=== PATIENT | male | born 1945 | race Caucasian/White ===

== ENCOUNTER 2018-11-06 10:47 | Emergency (ER) | payer MEDICARE, OTHER, SELFPAY ==
[2018-11-06] VITALS (18 sets, daily range): BP systolic 107–145; BP diastolic 62–79; PULSE 60–78; RESP 13–29; TEMP 36.8–37; O2SAT 95–99
[2018-11-06] MEDS: Meclizine 25 MG TAB PO (11:45)
[2018-11-06] MEDS: Normal Saline 1,000 ML 125 ML IV (11:55)
[2018-11-06 12:11] LABS: Abs Immature Grans 0.01 k/cumm (0.0-0.09); Absolute Basophil Count 0.01 k/cumm (0.0-0.2); Absolute Eosinophil Count 0.01 k/cumm (0.0-0.7); Absolute Lymphocyte Count 0.82 k/cumm (1.2-3.4); Absolute Monocyte Count 0.39 k/cumm (0.11-0.7); Absolute Neutrophil Count 4.88 k/cumm (1.2-6.7); Basophils % 0.2; Eosinophils % 0.2; HCT 43.8 % (40.0-50.0); HGB 14.9 g/dL (13.5-17.5); Immature Grans % 0.2; Lymphocytes % 13.4; Mean Corpuscular Hemoglobin 31.2 pg (27.0-33.0); Mean Corpuscular Volume 91.8 fL (80-95); Mean Platelet Volume 10.5 fL (8.0-11.0); Monocytes % 6.4; Neutrophils % 79.6; Platelet Count 206 x1000/uL (130-400); RBC 4.77 m/cumm (4.50-6.00); RBC Distribution Width 12.5 % (11.8-14.1); White Blood Cell Count 6.12 k/cumm (4.4-10.8)
[2018-11-06 12:18] LABS: Bilirubin Negative (Negative); Blood Trace-intact (Negative); Clarity Clear; Glucose Negative (Negative); Ketones Negative (Negative); Leukocyte Esterase Negative (Negative); Nitrite Negative (Negative); Urobilinogen 0.2 EU/dL (Up TO 0.2)
--- NOTE | 2018-11-06 12:21 | DI.CT_ITS ---
SYMPTOMS/DIAGNOSIS: DIZZINESS NONCONTRAST HEAD CT: Comparison is made with . No intracranial hemorrhage, mass or infarct is seen. There is no significant atrophy or visible white matter changes. There is mild mucosal thickening of the right maxillary sinus. The mastoid air cells appear clear. The orbits are unremarkable. IMPRESSION: Negative head CT. Incidental mild right maxillary sinus disease.
[2018-11-06 12:29] LABS: ALT 22 U/L (12-78); AST 26 U/L (15-37); Albumin 3.3 g/dL (3.4-5.0); Alkaline Phosphatase 51 U/L (46-116); Anion Gap 9.6 mmol/L (3-11); BUN 14 mg/dL (7-18); Bilirubin, Total 0.6 mg/dL (0.2-1.0); CO2 27.4 mmol/L (21.0-32.0); CREATININE 0.96 mg/dL (0.70-1.30); Calcium 8.6 mg/dL (8.5-10.1); Chloride 102 mmol/L (98-107); Glucose 160 mg/dL (70-100); Magnesium 1.6 mg/dL (1.8-2.4); Potassium 3.3 mmol/L (3.5-5.1); Sodium 139 mmol/L (136-145); Total Protein 6.9 g/dL (6.4-8.2); Troponin I < 0.02 ng/mL (0.00-0.06)
[2018-11-06 12:29] LABS: Bacteria Few HPF (Negative); C & S Indicated? No; Casts Negative LPF (Negative); Crystals Negative HPF (Negative); Epithelial Cells Negative HPF (Negative); Mucus Moderate (Negative); WBC 0-2 HPF (0-5)
[2018-11-06] MEDS: Magnesium Oxide 400 MG TAB PO (13:54)
--- NOTE | 2018-11-06 14:08 | ED.GENADUL_ITS ---
Discharge Plan Disposition Patient Disposition: HOME Discharge Details Chief Complaint: Dizzy/Sync Primary Care Provider: Suzanne Guerra ED Provider: Yash Miranda Home Meds and New Rx's Prescriptions: New meclizine 25 mg tablet 25 mg PO TID PRN (Reason: dizziness) Qty: 20 RF: 0 Continued pantoprazole 40 mg tablet,delayed release (DR/EC) 40 mg PO DAILY RF: 0 metoclopramide HCl [Reglan] 10 mg tablet 10 mg PO TID Qty: 60 RF: 2 metoprolol tartrate [Lopressor] 50 MG tablet 1 tab PO BID Qty: 180 RF: 4 lisinopril 5 MG tablet 1 tab PO DAILY Qty: 90 RF: 4 hydrochlorothiazide 25 MG tablet 1 tab PO QAM Qty: 90 RF: 4 lovastatin 20 MG tablet 20 mg PO DAILY Qty: 90 RF: 3 Discontinued dicyclomine 10 mg capsule 10 mg PO TID RF: 0 Discharge Data Discharge Date/Time-TO BE ENTERED AT DEPARTURE: 11/06/18 14:30 Medical Decision Making Chief complaint of dizziness, normal exam both cardiac respiratory and neurological with the exception of hints exam showing head impulse test with correction from the left and some worsening of symptoms with [place]-Hallpike also to the left. Plan to check labs, CT imaging of the head due to patient's age, EKG, give fluids and meclizine. Labs were reviewed and show mild low magnesium and potassium otherwise nondiagn ostic unremarkable. Patient was given oral magnesium and head CT was unremarkable. Patient reassessed and states significant improvement of symptoms with full ambulation through the emergency department without assistance and without significant gait abnormality. Given patient's description of paroxysmal symptoms, positive [place]-Hallpike and hence exam showing peripheral source along with no central findings and otherwise normal neurological exam I do not feel the patient requires any further workup. Close return precautions were discussed with patient and patient encouraged to follow-up with primary care provider for any further reassessment needs. Patient was prescribed meclizine to use at home since his significantly reduced his symptoms. After discussion of diagnosis and plan of care patient and family have no further needs, questions, or concerns and states clear understanding to return to the emergency department for any worsening symptoms. Lab Data Lab results reviewed: Yes I reviewed the patient's lab results. ECG Data Attestation: I personally reviewed and interpreted this ECG (s) as follows: Prior ECG tracings: available for review Interpretation: EKG reviewed with Dr. Lawrence and shows sinus rhythm with rate of 64, some nonspecific ST changes that are nondiagnostic with ST depression in V2 3 4 and 5 which have been present in the past. HPI General Mode of arrival: ambulatory . Date/Time Provider Initiated Documentation: 11/06/18 10:49 . Limitations to Documentation: no limitations . Information obtained by: patient and RN notes reviewed . History of Present Illness 73 year old M presents to the emergency department with the chief complaint of dizziness, Quality is described as other (denies pain), Patient started experiencing this day(s) (2) and it has been intermittent. Rest improves symptom(s), Movement worsens symptoms . Patient did receive the following treatments prior to arrival, none Related Data Home Medications Medication Instructions Recorded Confirmed hydrochlorothiazide 1 tab PO QAM #90 tab 10/30/17 11/06/18 lisinopril 1 tab PO DAILY #90 tab-cap 10/30/17 11/06/18 lovastatin 20 mg PO DAILY #90 tab-cap 10/30/17 11/06/18 metoprolol tartrate [Lopressor] 1 tab PO BID #180 tab-cap 10/30/17 11/06/18 metoclopramide 10 mg tablet 10 mg PO TID #60 tab 10/29/18 11/06/18 pantoprazole 40 mg tablet,delayed 40 mg PO DAILY 10/29/18 11/06/18 release meclizine 25 mg PO TID PRN #20 tab 11/06/18 Previous Rx's Medication Instructions Recorded hydrochlorothiazide 1 tab PO QAM #90 tab 10/30/17 lisinopril 1 tab PO DAILY #90 tab-cap 10/30/17 lovastatin 20 mg PO DAILY #90 tab-cap 10/30/17 metoprolol tartrate [Lopressor] 1 tab PO BID #180 tab-cap 10/30/17 metoclopramide 10 mg tablet 10 mg PO TID #60 tab 10/29/18 meclizine 25 mg PO TID PRN #20 tab 11/06/18 Allergies Allergy/AdvReac Type Severity Reaction Status Date / Time oxycodone AdvReac Intermediate Dizziness/L Unverified 11/06/18 11:06 ightheade General Stated Complaint: Dizzy/Sync TORIE: 2 Review of Systems Constitutional Denies body ache(s), Denies chills, Denies fever(s) and Denies headache(s) Eyes Denies change in vision ENT Reports vertigo, Reports dizziness and Denies headache(s) Cardiovascular Denies chest pain, Denies syncope, Denies irregular heart rhythm and Denies dyspnea Respiratory Denies dyspnea Gastrointestinal Reports nausea and Reports vomiting Neurologic Reports as per HPI, Reports vertigo, Reports dizziness, Denies syncope, Denies headache(s) and Denies sensory deficit PFSH Surgical History Colonoscopy - MAC (~2007) LEFT HEART CARDIAC CATH (~2004) Repair of inguinal hernia Family History Father Heart disease Stroke Alcohol abuse Maternal Grandfather Heart disease Mother No problems noted. Paternal Grandfather No problems noted. Maternal Grandmother No problems noted. Paternal Grandmother No problems noted. Social History caregiver/support person: No household members: spouse housing: house pets and animals: Yes pets and animals: cat(s) sexually active: Yes do you think of yourself as: straight/heterosexual current gender identity: male what type of physical activity do you participate in: walking frequency: 3-4 times per week duration: 15-30 minutes/day Smoking and Tabacco status: Never second hand exposure: Yes alcohol intake: current alcohol intake frequency: holidays/special occasions only Alcohol type: beer substance use type: does not use susana/adventist: Confucianist special susana needs: No What is your relationship status?: How often do you talk on the phone with friends or family?: twice per week How often do you get together with friends or relatives?: once per week How often do you attend presybeterian or adventist services?: decline to answer Do you belong to any clubs or organized social groups?: no Panel score (0-1 are the most socially isolated patients): 2 Exam Const General: cooperative, healthy appearing, no acute distress and well groomed Orientation: alert, awake and oriented x3 HENMT Head: normal to inspection Ears: hearing grossly normal bilaterally and TM's normal bilaterally Mouth: oral mucosae normal and moist mucous membranes Throat: posterior oropharynx normal Eyes Visual Barragan: normal visual barragan by confrontation Alignment and Position: alignment normal Periorbital: periorbital findings normal Eyelids: eyelids normal Sclera: sclerae normal Cornea: corneas normal Pupils: PERRL EOM: EOM intact bilaterally Neck Neck: normal visual inspection, full ROM, no lymphadenopathy and no meningeal signs Resp Effort & Inspection: normal respiratory effort and able to speak in complete sentences Auscultation: clear to auscultation bilaterally Cardio Rate: regular rate Rhythm: regular rhythm Heart Sounds: S1 normal and S2 normal Neuro General: alert, awake, oriented x3, gait normal, tone normal, moves all extremities, CN's II-XI intact bilaterally, not confused and Heladio Hallpike (positive to left) Cognition: normal cognition Speech: speech normal Motor: muscle tone normal throughout, strength 5/5 throughout, no pronator drift, no movement abnormalities noted and no fasciculations Sensory Exam: no sensory deficits noted Coordination: [id number] test normal, Romberg test normal, Does not sway with eyes open, rapid alternating movement UE normal and rapid alternating movement LE normal Course Vital Signs Respiratory Rate 19 11/06/18 10:50 Pulse Oximetry 97 11/06/18 10:50 Temperature 36.8 C 11/06/18 13:54 Temperature Source Temporal Artery Scan 11/06/18 13:54 Pulse 66 11/06/18 13:54 Pulse 60 11/06/18 12:03 Respiratory Rate 16 11/06/18 13:54 Respiratory Effort Non-Labored 11/06/18 11:09 Respiratory Depth Normal 11/06/18 11:09 Respiratory Pattern Normal 11/06/18 11:09 Blood Pressure 129/69 11/06/18 13:54 Blood Pressure Mean 84 11/06/18 12:02 Blood Pressure Position Supine 11/06/18 11:01 Pulse Oximetry 98 11/06/18 13:54 Oxygen Delivery Method Room Air 11/06/18 13:54 Oxygen Flow Rate 0 11/06/18 13:54 Pain Level 1 11/06/18 11:01 Lab/Test Results Lab/Test Results: Laboratory Tests Range/Units 03/05/19 03/05/19 03/05/19 11:50 11:50 12:05 WBC (4.4-10.8) k/cumm 6.12 RBC (4.50-6.00) m/cumm 4.77 Hgb (13.5-17.5) g/dL 14.9 Hct (40.0-50.0) % 43.8 MCV (80-95) fL 91.8 MCH (27.0-33.0) pg 31.2 MCHC (32.0-36.0) g/dL 34.0 RDW (11.8-14.1) % 12.5 Plt Count (130-400) x1000/uL 206 MPV (8.0-11.0) fL 10.5 Immature Gran % 0.2 Neutrophils % 79.6 Lymphocytes % 13.4 Monocytes % 6.4 Eosinophils % 0.2 Basophils % 0.2 Absolute Neutrophils (1.2-6.7) k/cumm 4.88 Absolute Lymphocytes (1.2-3.4) k/cumm 0.82 L Absolute Monocytes (0.11-0.7) k/cumm 0.39 Absolute Eosinophils (0.0-0.7) k/cumm 0.01 Absolute Basophils (0.0-0.2) k/cumm 0.01 Sodium (136-145) mmol/L 139 Potassium (3.5-5.1) mmol/L 3.3 L Chloride (98-107) mmol/L 102 Carbon Dioxide (21.0-32.0) mmol/L 27.4 Anion Gap (3-11) mmol/L 9.6 BUN (7-18) mg/dL 14 Creatinine (0.70-1.30) mg/dL 0.96 Estimated GFR/1.73 m2 (mL/min/1.73m2) >= 60.00 Glucose (70-100) mg/dL 160 H Calcium (8.5-10.1) mg/dL 8.6 Magnesium (1.8-2.4) mg/dL 1.6 L Total Bilirubin (0.2-1.0) mg/dL 0.6 AST (15-37) U/L 26 ALT (12-78) U/L 22 Alkaline Phosphatase (46-116) U/L 51 Troponin I (0.00-0.06) ng/mL < 0.02 Total Protein (6.4-8.2) g/dL 6.9 Albumin (3.4-5.0) g/dL 3.3 L Urine Color (Yellow) Yellow Urine Clarity Clear Urine pH (5-8) 7.0 Ur Specific [place] (1.005-1.025) 1.020 Urine Protein (Negative) mg/dL Negative Urine Ketones (Negative) mg/dL Negative Urine Blood (Negative) Trace-intact H Urine Nitrite (Negative) Negative Urine Bilirubin (Negative) Negative Urine Urobilinogen (Up TO 0.2) EU/dL 0.2 Ur Leukocyte Esterase (Negative) Negative Urine RBC (0-2) 3-5 H Urine WBC (0-5) HPF 0-2 Ur Epithelial Cells (Negative) HPF Negative Urine Crystals (Negative) HPF Negative Urine Bacteria (Negative) HPF Few Urine Casts (Negative) LPF Negative Urine Mucus (Negative) Moderate Ur Culture Indicated? No Urine Glucose (Negative) mg/dL Negative
--- NOTE | 2018-11-06 14:18 | NUR.NOTE ---
Nursing Note: able to ambulate aroung er with mild dizziness--gait improved
== END 2018-11-06 14:30 | disposition home or self-care (01) ==
PROVIDERS: Emergency Provider Nurse Practitioner Family; PCP Internal Medicine
DX: H81.10 Benign paroxysmal vertigo, unspecified ear (principal)
CPT/HCPCS: 36415; 36416; 80053; 82962; 93005; 96360; 96361; 99285; 70450; 81003; 81015; 83735; 84484; 85025; 93010

== ENCOUNTER 2019-03-05 09:40 | Outpatient (CLI) | payer MEDICARE, SELFPAY ==
[2019-03-05 13:39] LABS: ALT 27 U/L (12-78); AST 29 U/L (15-37); Albumin 3.6 g/dL (3.4-5.0); Alkaline Phosphatase 63 U/L (46-116); Anion Gap 9.5 mmol/L (3-11); BUN 13 mg/dL (7-18); Bilirubin, Total 0.6 mg/dL (0.2-1.0); CO2 27.5 mmol/L (21.0-32.0); CREATININE 0.99 mg/dL (0.70-1.30); Chloride 103 mmol/L (98-107); Glucose 79 mg/dL (70-100); Magnesium 1.8 mg/dL (1.8-2.4); Potassium 4.5 mmol/L (3.5-5.1); Sodium 140 mmol/L (136-145); Total Protein 6.8 g/dL (6.4-8.2)
== END 2019-03-05 10:00 ==
PROVIDERS: PCP Internal Medicine; Visit Provider Internal Medicine
DX: E83.42 Hypomagnesemia (principal); I10 Essential (primary) hypertension
CPT/HCPCS: 36415; 80053; 83735

== ENCOUNTER 2019-09-11 02:13 | Outpatient (CLI) | payer MEDICARE, SELFPAY ==
--- NOTE | 2019-09-11 08:54 | DI.RAD_ITS ---
EXAM: XR CHEST 2V PA LATERAL INDICATION: chest discomfort DYSPHAGIA R13.10. COMPARISON: No exams were available for comparison TECHNIQUE: 2D digital imaging was performed. FINDINGS: Heart size is within normal limits. The aorta is mildly tortuous. There are mild basilar fibrotic changes. No infiltrate, effusion or pulmonary edema is seen. IMPRESSION: No acute abnormality.
== END 2019-09-11 02:33 ==
PROVIDERS: PCP Internal Medicine; Visit Provider Internal Medicine
DX: R07.89 Other chest pain (principal); R13.10 Dysphagia, unspecified
CPT/HCPCS: 71046

== ENCOUNTER 2020-02-18 13:01 | Outpatient (REF) | payer MEDICARE, SELFPAY ==
[2020-02-18 20:27] LABS: CREATININE 0.95 mg/dL (0.70-1.30); Calculated LDL 109 mg/dL (<100); Cholesterol 209 mg/dL (<200); HDL Cholesterol 52 mg/dL (40-60); Potassium 3.6 mmol/L (3.5-5.1); Triglyceride 244 mg/dL (<150)
== END 2020-02-18 13:21 ==
LOC: LBN 13:01
PROVIDERS: PCP Nurse Practitioner; Visit Provider Nurse Practitioner
DX: I10 Essential (primary) hypertension (principal); E78.5 Hyperlipidemia, unspecified
CPT/HCPCS: 80061; 82565; 84132

== ENCOUNTER 2021-09-14 18:18 | Outpatient (REF) | payer MEDICARE, SELFPAY ==
[2021-09-15 11:42] LABS: COVID-19 RT-PCR UVMMC Result Negative (Negative)
== END 2021-09-14 18:19 | disposition home or self-care (01) ==
LOC: LBN 18:18
PROVIDERS: PCP Nurse Practitioner; Visit Provider Nurse Practitioner
DX: Z20.822 Contact with and (suspected) exposure to COVID-19 (principal)
CPT/HCPCS: U0003; U0005

== ENCOUNTER 2021-09-24 01:58 | Outpatient (CLI) | payer MEDICARE, SELFPAY ==
[2021-09-24 10:06] LABS: HCT 50.8 % (40.0-50.0); HGB 16.5 g/dL (13.5-17.5); MCH 29.9 pg (27.0-33.0); MCHC 32.5 % (32.0-36.0); MCV 92.2 fL (80-95); MPV 10.5 fL (8.0-11.0); Platelet Count 190 10^3/uL (130-400); RBC 5.51 10^6/uL (4.36-5.78); RDW 13.2 % (11.8-14.1); WBC 7.13 10^3/uL (4.4-10.8)
[2021-09-24 10:15] LABS: Hemoglobin A1C 5.8 % (<5.7)
[2021-09-24 11:11] LABS: Anion Gap 7.6 mmol/L (3-11); BUN 19 mg/dL (7-18); CO2 31.4 mmol/L (21.0-32.0); CREATININE 1.1 mg/dL (0.70-1.30); Calculated LDL 85 mg/dL (<100); Chloride 101 mmol/L (98-107); Cholesterol 160 mg/dL (<200); Glucose 91 mg/dL (74-106); HDL Cholesterol 56 mg/dL (40-60); Potassium 3.9 mmol/L (3.5-5.1); Sodium 140 mmol/L (136-145); Triglyceride 97 mg/dL (<150)
[2021-09-27 00:09] LABS: Anaplasma phagocytophilum Negative (Negative); B. miyamotoi PCR Negative (Negative); Babesia divergens/MO-1 Negative (Negative); Babesia duncani Negative (Negative); Babesia microti Negative (Negative); Ehrlichia chaffeensis Negative (Negative); Ehrlichia ewingii/canis Negative (Negative); Ehrlichia muris eauclairensis Negative (Negative)
[2021-09-27 11:04] LABS: Lyme Ab w Rflx to Lyme Confirm Negative (Negative)
== END 2021-09-24 01:59 | disposition home or self-care (01) ==
LOC: LBO 01:58
PROVIDERS: PCP Nurse Practitioner; Visit Provider Nurse Practitioner
DX: I10 Essential (primary) hypertension (principal); R73.09 Other abnormal glucose; E78.2 Mixed hyperlipidemia; R53.83 Other fatigue; M62.81 Muscle weakness (generalized)
CPT/HCPCS: 36415; 80048; 80061; 85027; 87798; 83036; 86618

== ENCOUNTER 2021-10-11 04:26 | Outpatient (RCR) | payer MEDICARE, SELFPAY ==
--- NOTE | 2021-10-11 09:15 | HOLTER_ITS ---
APPROVED REPORT Conclusion This is a 48-hour Holter monitor, ordered for an irregular heartbeat Rhythm throughout was atrial fibrillation with an average rate of 64. Minimum was 49, maximum 116 There were rare ventricular ectopic beats There is no high-grade AV block, no pauses greater than 3 seconds The patient reported that he was lightheaded throughout the recording
== END 2021-11-01 23:59 | disposition home or self-care (01) ==
LOC: RT 04:26
PROVIDERS: PCP Nurse Practitioner; Visit Provider Nurse Practitioner
DX: I49.8 Other specified cardiac arrhythmias (principal); I48.91 Unspecified atrial fibrillation; R42 Dizziness and giddiness
CPT/HCPCS: 93227; 93225; 93226

== ENCOUNTER 2021-10-13 01:50 | Outpatient (CLI) | payer MEDICARE, SELFPAY ==
[2021-10-13 10:06] LABS: ALT 29 U/L (16-63); AST 29 U/L (15-37); Albumin 3.8 g/dL (3.4-5.0); Alkaline Phosphatase 63 U/L (46-116); Bilirubin, Direct 0.3 mg/dL (0.0-0.2); TSH (W/Ref FT4) 4.55 uIU/mL (0.36-3.74); Total Protein 7.2 g/dL (6.4-8.2)
[2021-10-13 10:22] LABS: FREE T4 1.15 ng/dL (0.76-1.46)
[2021-10-13 11:00] LABS: Folate 19.3 ng/mL (8.6-20.0); Vitamin B12 516 pg/mL (193-986)
== END 2021-10-13 01:51 | disposition home or self-care (01) ==
LOC: LBO 01:50
PROVIDERS: PCP Nurse Practitioner; Visit Provider Nurse Practitioner
DX: M62.81 Muscle weakness (generalized) (principal); R53.83 Other fatigue; E78.2 Mixed hyperlipidemia
CPT/HCPCS: 36415; 80076; 82607; 82746; 84439; 84443

== ENCOUNTER 2021-11-09 01:47 | Outpatient (CLI) | payer MEDICARE, SELFPAY ==
--- NOTE | 2021-11-09 08:00 | DI.RAD_ITS ---
Exam(s) XR HIP LT COMPLETE AP PELVIS EXAM: XR HIP LT COMPLETE AP PELVIS CLINICAL HISTORY: hilt hip pain, m25.552. TECHNIQUE: 2D digital imaging was performed. COMPARISON: No exams were available for comparison FINDINGS: No evidence of pelvic nor hip fracture. Mild symmetrical degenerative changes are noted in the hips. Sacroiliac joints unremarkable. No osseous lesions. IMPRESSION: DATA REPOSITORY: RADIATION DOSE DELIVERED:
== END 2021-11-09 02:07 ==
PROVIDERS: PCP Nurse Practitioner; Visit Provider Nurse Practitioner
DX: M25.552 Pain in left hip (principal); M16.12 Unilateral primary osteoarthritis, left hip
CPT/HCPCS: 73502

== ENCOUNTER → 2021-11-18 01:56 | Outpatient (CLI) | payer MEDICARE, SELFPAY ==
--- NOTE | 2021-11-18 13:56 | DI.US_ITS ---
APPROVED REPORT EXAM: Comprehensive 2D, Doppler, and color-flow Echocardiogram Patient Location: Out-Patient Stacker Driver: Naa Phillips RDCS (AE) Indications: A Fib Other Information Study Quality: Adequate Conclusion Normal left ventricular wall thickness and chamber size. Estimated ejection fraction is 55 to 60%. Diastolic septal flattening suggests right ventricular pressure and volume overload. There are no se gmental wall motion abnormalities The right ventricle is moderately to severely dilated. Right ventricular systolic function appears g rossly normal The left atrium is normal in size. The right atrium is severely dilated The aortic valve is trileaflet and mildly sclerotic with trace to mild regurgitation Normal mitral valve with mild regurgitation Normal tricuspid valve with moderate regurgitation. Estimated right ventricular systolic pressure is 38 mmHg Mildly dilated ascending aorta measuring 3.81 cm Wall motion Left Ventricle The left ventricle is normal size. The left ventricular systolic function is normal. The left ventric ular ejection fraction is within the normal range. There is normal left ventricular wall thickness. F lattened septum consistent with right ventricular volume and pressure overload. There is no ventricul ar septal defect visualized. LVEF is 57%. Right Ventricle Right ventricle is moderate to severely dilated. Right ventricular systolic function is grossly efrain l. The RVSP is 37.7 mmHg. Atria The left atrium size is normal. Right atrium is severely dilated. The interatrial septum is intact wi th no evidence for an atrial septal defect. Aortic Valve The Aortic valve is mildly sclerotic. Aortic valve is trileaflet. There is no aortic valvular stenosi s. Trace to mild aortic regurgitation. Mitral Valve The mitral valve is normal in structure. No evidence of mitral valve stenosis. Mild mitral regurgitat ion. Tricuspid Valve The tricuspid valve is normal in structure. There is no tricuspid valve stenosis. Moderate tricuspid regurgitation. Pulmonic Valve The pulmonary valve is normal in structure. There is no pulmonic valvular stenosis. Mild pulmonic reg urgitation. Great Vessels The aortic root is normal in size. The ascending aorta is mildly dilated.3.81 cm Aortic arch is efrain l in caliber. IVC is normal in size and collapses >50% with inspiration. Pericardium There is no pericardial effusion. 2D Dimensions IVSD d PLAX 1.02 cm M: 0.6-1.2 LV Vol A2C d MOD 105.3 mL LVPW d PLAX 1.02 cm M: 0.6 - 1.2 LV Vol A4C d MOD 84.3 mL LVID d PLAX 5.18 cm M: 4.2 - 5.8 LA vol/ BSA A4C s A-L 21.5 mL/m2 LVDs 3.65 cm M: 2.5 - 4.0 LA Area A4C s MOD 17.95 cm2 Ao Root d 3.45 cm M: 3.1 - 3.7 LV EF A4C MOD 57.8 % Ao Asc Diam d 3.81 cm M: 2.6 - 3.4 LV EF A2C MOD 56.1 % LV EF Teichholz 55.9 % LV EF Biplane MOD 55.8 % LVEF (Erwin's) 55.82 % M: 52 - 72 SV 54.45 mL LV Volume 70.70 mL M: 62 - 150 SV Index 24.49 mL/m2 LV Volume Index 31.84 mL/m2 M: 34 - 74 LV Vol Biplane MOD 97.5 mL FS 29.35 % M-Mode TAPSE 2.51 cm (M/F) >1.7 LV Diastology E/A Ratio 3.2 MV E Vmax 0.81 (0.4-1.3 m/s) MV A Vmax 0.25 (0.4-1.3 m/s) MV E/A Ratio 3.09 Aortic Valve LVOT Area 3.84 cm2 AoV Area Vmax 2.59 cm2 LVOT Vmax 0.85 m/s AoV Area/ BSA (Vmax) 1.17 cm2/m2 LVOT Mean Travon. 0.52 m/s BEKA Mean Travon. 2.23 cm2 LVOT Peak Grad 2.9 mmHg BEKA Mean Travon. Index 1.00 cm2/m2 LVOT Mean Grad 1.3 mmHg AR DT 2809 msec LVOT VTI 0.187 m AR PHT 815 msec LVOT Diam s 2.20 cm AoV Vmax 1.26 m/s Velocity Ratio 0.67 AoV Mean Travon. 0.90 m/s AoV Peak Grad 6.4 mmHg LVOT SV 71.90 mL AoV Mean Grad 3.6 mmHg AoV VTI 0.246 m AoV Area VTI 2.92 cm2 AoV Area/ BSA (VTI) 1.31 cm/m2 Mitral Valve MV DT 162 (160-240 msec) MV PHT 47 msec MV Area PHT 4.69 cm2 Pulmonary Valve PV Vmax 0.88 (0.5-1.5 m/s) RVOT Peak Gr. 1.13 mmHg PV Peak Grad 3.1 mmHg RVOT Mean Gr. 0.50 mmHg PV Mean Grad 1.3 mmHg RVOT VTI 0.110 m PV VTI 0.139 m RVOT Vmax 0.53 m/s Tricuspid Valve TR Peak Grad 34.7 mmHg TR Vmax 2.95 m/s RA Pressure 3.00 mmHg RVSP (TR) 37.7 mmHg
== END ==
PROVIDERS: PCP Nurse Practitioner; Visit Provider Nurse Practitioner
DX: I48.91 Unspecified atrial fibrillation (principal); Z09 Encounter for follow-up examination after completed treatment for conditions other than malignant neoplasm; I77.819 Aortic ectasia, unspecified site
CPT/HCPCS: 93306; 99243

== ENCOUNTER 2021-12-16 13:47 | Outpatient (CLI) | payer MEDICARE, SELFPAY ==
--- NOTE | 2021-12-16 14:00 | RT.EKG_ITS ---
APPROVED REPORT Exam: Resting ECG Reason for Exam: afib Patient Location: O HR:77 bpm ECG Measurements Heart Rate 77 AXIS CA [id number] P [id number] QRSd 98 QRS -22 QT 398 T -15 QTc 451 Conclusion Atrial fibrillation...V-rate 51- 72, irreg A-activity Abnormal R-wave progression, late transition...QRS area<0 in V5/V6 Left axis Baseline wander in lead(s) V2,V4
== END 2021-12-16 13:48 | disposition home or self-care (01) ==
LOC: DI.CARD 14:07
PROVIDERS: PCP Nurse Practitioner; Referring Provider Nurse Practitioner; Visit Provider Internal Medicine Cardiovascular Disease
DX: I48.91 Unspecified atrial fibrillation (principal)
CPT/HCPCS: 93010

== ENCOUNTER → 2021-12-16 13:47 | Outpatient (BNVA) | payer MEDICARE, SELFPAY | PROVIDERS: PCP Nurse Practitioner; Referring Provider Nurse Practitioner; Visit Provider Internal Medicine Cardiovascular Disease | DX: I48.91 Unspecified atrial fibrillation (principal); I10 Essential (primary) hypertension | CPT/HCPCS: 93005; 99203; 99214 ==

== ENCOUNTER 2022-01-19 02:16 | Outpatient (CLI) | payer MEDICARE, SELFPAY | END 2022-01-19 02:17 | disposition home or self-care (01) | LOC: LBO 02:16 | PROVIDERS: PCP Nurse Practitioner; Visit Provider Internal Medicine Cardiovascular Disease ==

== ENCOUNTER 2022-01-19 10:39 | Outpatient (REF) | payer MEDICARE, SELFPAY ==
[2022-01-19 11:08] LABS: Source Nasal/Nares
[2022-01-19 16:03] LABS: COVID-19 PCR Negative (Negative)
== END 2022-01-19 10:40 | disposition home or self-care (01) ==
LOC: LBN 10:39
PROVIDERS: PCP Nurse Practitioner; Visit Provider Internal Medicine Cardiovascular Disease
DX: Z20.822 Contact with and (suspected) exposure to COVID-19 (principal); Z01.818 Encounter for other preprocedural examination
CPT/HCPCS: 87635; U0005

== ENCOUNTER 2022-01-21 11:12 | Day surgery (SDC) | payer MEDICARE, SELFPAY ==
--- NOTE | 2022-01-21 11:15 | RT.EKG_ITS ---
APPROVED REPORT Exam: Resting ECG Reason for Exam: pre- op ekg Patient Location: O HR:84 bpm ECG Measurements Heart Rate 84 AXIS MO [id number] P [id number] QRSd 97 QRS -38 QT 371 T -11 QTc 440 Conclusion Atrial fibrillation...V-rate 66- 94, irreg A-activity Ventricular premature complex...V complex w/ short R-R interval Left axis deviation...QRS axis (-30,-90) Borderline T abnormalities, diffuse leads...T flat/neg
[2022-01-21 11:21] VITALS: BP 141/100; PULSE 88; RESP 22; TEMP 37; O2SAT 99
--- NOTE | 2022-01-21 11:46 | W.ANESPRE ---
General Info Date of Service Date Performed: 01/21/22 Height: 6 ft 1 in Weight: 96.4 kg Body Mass Index (BMI): 28.0 Surgical Procedure: Operation Date: 01/21/22 12:00 Proposed Procedure Side Surgeon p Cardioversion Vidya Saleh MD Meds Allergies and Home Medications Allergies Allergy/AdvReac Type Severity Reaction Status Date / Time oxycodone AdvReac Intermediate Dizziness/L Verified 01/21/22 11:35 ightheade Home Medication Medication Instructions Recorded hydrochlorothiazide 25 mg tablet 25 mg PO QAM #90 tabs 01/28/21 pantoprazole 40 mg tablet,delayed 40 mg PO DAILY #90 tabs 01/28/21 release adjuvant AS01B (PF)vial 1 of 2 0.5 ml IM ONCE #0.5 mL 10/01/21 (Shingrix Adjuvant Component (PF) intramuscular suspension) apixaban 5 mg tablet (Eliquis) 5 mg PO BID #60 tabs 10/15/21 lisinopril 20 mg tablet 20 mg PO DAILY #90 tabs 11/05/21 bisacodyl 5 mg tablet,delayed 5 mg PO ONCE colonscopy bowel prep 11/18/21 release (Dulcolax (bisacodyl)) #4 tabs multivitamin 1 tab PO DAILY 11/18/21 polyethylene glycol 3350 17 238 g PO ONCE colonoscopy prep 11/18/21 gram/dose oral powder #238 grams metoprolol tartrate 50 mg tablet 50 mg PO BID #180 tab-caps 11/25/21 (Lopressor) levothyroxine 25 mcg tablet 25 mcg PO DAILY #90 tabs 12/17/21 lovastatin 20 mg tablet 20 mg PO HS 01/19/22 Current Visit Medications: Current Medications Generic Name Dose Route Start Last Admin Trade Name Freq PRN Reason Stop Dose Admin Sodium Chloride 1,000 mls @ 30 mls/hr 01/20/22 06:00 Saline 1000ml Bag IV INFUSION ELÍAS IV Miscellaneous Supplies 1 each 01/21/22 06:00 Iv Access IV 02/19/22 23:59 DIRECTED ELÍAS Sodium Chloride 0 ml 01/21/22 06:00 Normal Saline Flush 10 Ml Syr IV 02/19/22 23:59 PRN PRN Sodium Chloride 0 ml 01/21/22 06:00 Normal Saline 10 Ml Vial IJ 02/19/22 23:59 DIRECTED PRN Sterile Water 0 ml 01/21/22 06:00 Water,Injection,Sterile 10 Ml Vial IJ 02/19/22 23:59 DIRECTED PRN PFSH Active Problems Active Problems: Problem Status Onset Code Left hip pain M25.552 Positive colorectal cancer screening using Cologuard test R19.5 A-fib I48.91 Elevated TSH R79.89 Prediabetes R73.03 Muscle weakness (generalized) M62.81 Fatigue R53.83 Tremor R25.1 Essential hypertension 07/02/13 I10 Gastroesophageal reflux disease K21.9 Hyperlipidemia 01/03/13 E78.5 Medical History Medical History Achalasia History of left heart catheterization because of esophageal spasm symptoms, normal Low back pain Surgical History Surgical History Colonoscopy - MAC (~2007) LEFT HEART CARDIAC CATH (~2004) Repair of inguinal hernia B/L 1998 RIGHT 2011 S/P cholecystectomy Tobacco Smoking/Tobacco Use Status: Never Passive smoking exposure: Yes Second hand exposure: Yes (His father smoked terribly and at age 63) Alcohol Alcohol Intake: former Substance Use Substance use: Never Substance use type: does not use Vital Signs and Lab Results Vital Signs Most Recent Vital Signs in EMR: Most Recent Vital Signs Temp Pulse Resp BP Pulse Ox 37.0 C 88 22 141/100 H 99 01/21/22 11:21 01/21/22 11:21 01/21/22 11:21 01/21/22 11:21 01/21/22 11:21 Lab Results Blood Type / Crossmatch: No Data to Display Complete Blood Count: No Data to Display Complete Metabolic Panel: No Data to Display Liver Function Panel: No Data to Display Coagulation Panel: No Data to Display Cardiac Panel: No Data to Display Arterial Blood Gas: No Data to Display Venous Blood Gas: No Data to Display Pancreas Panel: No Data to Display Thyroid Panel: No Data to Display Infectious Disease: Coronavirus (COVID-19)(PCR) Negative (Negative) 01/19/22 09:00 Coronavirus 2019 Source Nasal/Nares 01/19/22 09:00 Blood Cultures: No Data to Display Toxicology Panel: No Data to Display Imaging and Studies Imaging and Studies Study information below may be from another EMR and interpreted by another provider. Please see original notes in EMR for more complete details. EKG Summary: Conclusion Atrial fibrillation...V-rate 66- 94, irreg A-activity Ventricular premature complex...V complex w/ short R-R interval Left axis deviation...QRS axis (-30,-90) Borderline T abnormalities, diffuse leads...T flat/neg Echocardiogram Summary: Conclusion Normal left ventricular wall thickness and chamber size. Estimated ejection fraction is 55 to 60%. Diastolic septal flattening suggests right ventricular pressure and volume overload. There are no segmental wall motion abnormalities The right ventricle is moderately to severely dilated. Right ventricular systolic function appears grossly normal The left atrium is normal in size. The right atrium is severely dilated The aortic valve is trileaflet and mildly sclerotic with trace to mild regurgitation Normal mitral valve with mild regurgitation Normal tricuspid valve with moderate regurgitation. Estimated right ventricular systolic pressure is 38 mmHg Mildly dilated ascending aorta measuring 3.81 cm Anesthesia Assessment and Plan Anesthesia History Personal History: No History of Anesthesia Complications Family History: No Family History of Anesthesia Complications Exercise Tolerance Exercise Tolerance: Metabolic Equivalents>4 Cardiac & Pulmonary Exam Cardiac Exam: Normal S1/S2 Heart Sounds Pulmonary Exam: Clear Bilateral Breath Sounds Implantable Cardiac Device Does patient have a Pacemaker or an ICD?: No Airway Exam Known Difficult Airway: No Mallampati Class: 3 Mouth Opening: Narrow (< 3cm) Thyromental Distance: Greater than 3 cm Facial Hair: Full Cisse (Mustache) Neck Range of Motion: Full ROM Neck Circumference: Normal Teeth Condition: Normal Dentition ASA Classification ASA Score: ASA 3 Emergency Case?: No NPO Status NPO Status: NPO Clears >2 hours, Solids >8 hours Anesthesia Plan Resuscitation Status: Full Code Anesthesia Technique: General Anesthesia Airway Planned: Natural Airway Monitors Used: Standard Monitors
[2022-01-21 11:50] VITALS: BMI 28.0
[2022-01-21] MEDS: Normal Saline 1,000 ML 30 ML IV (11:57)
--- NOTE | 2022-01-21 12:00 | RT.EKG_ITS ---
APPROVED REPORT Exam: Resting ECG Reason for Exam: post-op ekg Patient Location: O HR:63 bpm ECG Measurements Heart Rate 63 AXIS MS 232 P -9 QRSd 98 QRS -29 QT 462 T -13 QTc 514 Conclusion Sinus rhythm...normal P axis, V-rate 60- 99 Multiform ventricular premature complexes...short R-R, variable morphology Prolonged MS interval...MS >220, V-rate 50- 90 Left axis Poor R wave progression, consider old anterior infarct Prolonged QT interval...QTc >500mS
[2022-01-21 12:18] VITALS: BP 115/76; PULSE 55; RESP 20; TEMP 36.8; O2SAT 98
--- NOTE | 2022-01-21 12:22 | W.PM.DSUDISC ---
Discharge Plan Disposition Patient Disposition: HOME Condition: Stable Discharge Details Reason For Visit: atrial fibrillation Attending Provider: Vidya Saleh Primary Care Provider: Bernice Garcia Home Meds and New Rx's Prescriptions: Continued Shingrix Adjuvant Component-PF Suspension 0.5 ml IM ONCE Qty: 0.5 1RF Rx Instructions: as a single dose Eliquis 5 mg tablet 5 mg PO BID Qty: 60 11RF lisinopril 20 mg tablet 20 mg PO DAILY Qty: 90 3RF multivitamin Tablet 1 tab PO DAILY polyethylene glycol 3350 17 gram/dose powder 238 g PO ONCE Qty: 238 0RF Rx Instructions: take per colonoscopy instructions bisacodyl [Dulcolax (bisacodyl)] 5 mg tablet,delayed release (DR/EC) 5 mg PO ONCE Qty: 4 0RF Rx Instructions: take per colonoscopy instructions hydrochlorothiazide 25 mg tablet 25 mg PO QAM Qty: 90 4RF pantoprazole 40 mg tablet,delayed release (DR/EC) 40 mg PO DAILY Qty: 90 4RF metoprolol tartrate [Lopressor] 50 mg tablet 50 mg PO BID Qty: 180 4RF levothyroxine 25 mcg tablet 25 mcg PO DAILY Qty: 90 4RF lovastatin 20 mg tablet 20 mg PO HS Discharge Instructions Stand Alone Forms: DSU Cardioversion Post-Op Discharge Orders Discharge Orders: Discharge Order (Routine); Ordered 01/21/22 Ordered By: Vidya Saleh Other Ambulatory Orders: EKG (Routine) Location: None Selected Ordered By: Vidya Saleh Discharge Data Discharge Date/Time-TO BE ENTERED AT DEPARTURE: 01/21/22 12:25
--- NOTE | 2022-01-21 12:28 | W.CARDVER ---
Date of service: 01/21/22 Time of Service: 11:28 Cardioversion DATE OF PROCEDURE: 01/21/22 PRE-OP DIAGNOSES: Atrial fibrillation POST-OP DIAGNOSES: same Indications: Atrial fibrillation Procedure Description: Patient was brought to the procedure room from same-day surgery. He was connected to the anterior and posterior ZOLL pads and device. He was sedated under the direction of anesthesia. When adequate sedation was achieved he had initial synchronized shock at 150 W seconds. This failed to result in sinus rhythm. He was given a bit more sedation at a second shock at 200 W seconds was delivered with evangelical of sinus rhythm. Initial heart rate was approximately 40 that within several minutes he was in sinus rhythm at 60. He would be brought to the postanesthesia area to recover and will be discharged home when fully awake
[2022-01-21 12:50] VITALS: BP 123/70; PULSE 59; RESP 15; TEMP 36.2; O2SAT 98
--- NOTE | 2022-01-21 12:51 | W.PM.DSUDISC ---
Discharge Plan Disposition Patient Disposition: HOME Condition: Stable Discharge Details Reason For Visit: atrial fibrillation Attending Provider: Vidya Slaeh Primary Care Provider: Bernice Garcia Home Meds and New Rx's Prescriptions: Continued Shingrix Adjuvant Component-PF Suspension 0.5 ml IM ONCE Qty: 0.5 1RF Rx Instructions: as a single dose Eliquis 5 mg tablet 5 mg PO BID Qty: 60 11RF lisinopril 20 mg tablet 20 mg PO DAILY Qty: 90 3RF multivitamin Tablet 1 tab PO DAILY polyethylene glycol 3350 17 gram/dose powder 238 g PO ONCE Qty: 238 0RF Rx Instructions: take per colonoscopy instructions bisacodyl [Dulcolax (bisacodyl)] 5 mg tablet,delayed release (DR/EC) 5 mg PO ONCE Qty: 4 0RF Rx Instructions: take per colonoscopy instructions hydrochlorothiazide 25 mg tablet 25 mg PO QAM Qty: 90 4RF pantoprazole 40 mg tablet,delayed release (DR/EC) 40 mg PO DAILY Qty: 90 4RF metoprolol tartrate [Lopressor] 50 mg tablet 50 mg PO BID Qty: 180 4RF levothyroxine 25 mcg tablet 25 mcg PO DAILY Qty: 90 4RF lovastatin 20 mg tablet 20 mg PO HS Discharge Instructions Stand Alone Forms: DSU Cardioversion Post-Op, Crista Banerjee (DSU) Activity:: Activity as Tolerated Diet:: Normal Diet Discharge Orders Discharge Orders: Discharge Order (Routine); Ordered 01/21/22 Ordered By: Vidya Saleh Other Ambulatory Orders: EKG (Routine) Location: None Selected Ordered By: Vidya Saleh Discharge Data Discharge Date/Time-TO BE ENTERED AT DEPARTURE: 01/21/22 12:25
--- NOTE | 2022-01-21 13:08 | W.ANESPOSTOP ---
Postoperative Evaluation Date, Time and Location Date Performed: 01/21/22 Time Performed: 12:09 Patient Location: Day Surgery Unit Vital Signs Most Recent Imported Vital Signs: Most Recent Vital Signs Temp Pulse Resp BP Pulse Ox 36.8 C 55 L 20 115/76 98 01/21/22 12:18 01/21/22 12:18 01/21/22 12:18 01/21/22 12:18 01/21/22 12:18 Pain Score Most Recent Pain Score: Most Recent Pain Score Pain Level 0 01/21/22 12:18 Assessment Mental Status: Awake (Alert & Oriented to Patient Baseline) Airway and Respiratory Function: Patent airway with normal (patient baseline) respiratory exam Cardiovascular Function: Hemodynamically Stable Hydration Status: Adequately Hydrated Nausea & Vomiting: No Nausea or Vomiting Pain: Pt. Denies Any Pain Peripheral Nerve Block: Patient did not receive a nerve block
== END 2022-01-21 13:21 | disposition home or self-care (01) ==
LOC: SUR 11:12
PROVIDERS: PCP Nurse Practitioner; Visit Provider Internal Medicine Cardiovascular Disease
PROC: 5A2204Z Restoration of Cardiac Rhythm, Single (ICD-10-PCS; CPT 92960; principal; 2022-01-21 12:00)
DX: I48.91 Unspecified atrial fibrillation (principal)
CPT/HCPCS: 92960; 93005; 93010; 99024; J2704

== ENCOUNTER 2022-02-07 09:55 | Outpatient (CLI) | payer MEDICARE, SELFPAY ==
--- NOTE | 2022-02-07 09:45 | RT.EKG_ITS ---
APPROVED REPORT Exam: Resting ECG Reason for Exam: afib Patient Location: O HR:66 bpm ECG Measurements Heart Rate 66 [address] [place] [id number] P [id number] QRSd 100 QRS -12 QT 394 T -5 QTc 413 Conclusion Atrial fibrillation...V-rate 49- 79, irreg A-activity Abnormal R-wave progression, late transition...QRS area<0 in V5/V6 Borderline T abnormalities, inferior leads...T flat/neg, II III aVF
== END 2022-02-07 09:56 | disposition home or self-care (01) ==
LOC: DI.CARD 09:56
PROVIDERS: PCP Nurse Practitioner; Visit Provider Internal Medicine Cardiovascular Disease
DX: I48.91 Unspecified atrial fibrillation (principal)
CPT/HCPCS: 93010

== ENCOUNTER → 2022-02-07 12:53 | Outpatient (BNVA) | payer MEDICARE, SELFPAY | PROVIDERS: PCP Nurse Practitioner; Referring Provider Nurse Practitioner; Visit Provider Internal Medicine Cardiovascular Disease | DX: I48.91 Unspecified atrial fibrillation (principal); I10 Essential (primary) hypertension | CPT/HCPCS: 93005; 99213 ==

== ENCOUNTER → 2022-02-24 13:20 | Outpatient (BNVA) | payer MEDICARE, SELFPAY | PROVIDERS: PCP Nurse Practitioner; Referring Provider Nurse Practitioner; Visit Provider Surgery | DX: Z01.818 Encounter for other preprocedural examination (principal); R19.5 Other fecal abnormalities | CPT/HCPCS: 99213 ==

== ENCOUNTER 2022-03-09 02:39 | Outpatient (CLI) | payer MEDICARE, SELFPAY ==
[2022-03-09 13:25] LABS: TSH (W/Ref FT4) 2.33 uIU/mL (0.36-3.74)
== END 2022-03-09 02:40 | disposition home or self-care (01) ==
LOC: LOS 02:39
PROVIDERS: PCP Nurse Practitioner; Visit Provider Nurse Practitioner
DX: I10 Essential (primary) hypertension (principal); R53.83 Other fatigue; R94.6 Abnormal results of thyroid function studies
CPT/HCPCS: 36415; 84443

== ENCOUNTER 2022-03-11 11:15 | Day surgery (SDC) | payer MEDICARE, SELFPAY ==
--- NOTE | 2022-03-10 22:26 | W.COLOREPORT ---
Colonoscopy Report Date of procedure: 03/11/22 Pre-op diagnosis general: Cologuard + Post-op diagnosis procedure note: other (polyp) Surgeon: Uzma Johnson Anesthesia Type: General:No Airway Estimated blood loss (mL): 1 Complications: None Disposition: no change Prep: Miralax/Dulcolax Retraction Time: 12 Procedure Description: After informed consent was obtained the patient was taken to the procedure room and placed in a left decubitous position. Monitors were applied and a time out was done. The patients name, date of , procedure, allergies to medications and metal in their body was reviewed. The patient was then sedated. Once sedated and comfortable a rectal exam was done. External exam was normal. Internal exam revealed a normal sphincter tone and no palpable masses. The scope was then introduced and retrofelexed. NO internal hemorrhoids were identified. The scope was then advanced to the cecum without difficulty. The TI and appendiceal orifice were identified. The prep was BB PS 3 in all segments for a total of 9. The scope was then slowly retracted over 12 minutes back into the rectum. There is some minor diverticular disease confined to the sigmoid colon with no signs of active bleeding or infection. The mucosa is pink and healthy. He has a 0.75 cm polyp at 70 cm. This is removed with a cold biting forcep. All specimen is retrieved and no bleeding is noted. A clip was placed after the polyp was removed. The mucosa is pink and healthy with a normal vascular pattern. The scope was removed and the patient was woken up and taken back to Same day surgery in stable condition. The patient tolerated the procedure well and there were no immediate complications. Follow up: The patient should follow up in 3-5 years, path pd, unless they develop changes in bowel habits or other new gastrointestinal complaints.
--- NOTE | 2022-03-10 22:28 | PDOC.DSDIS_ITS ---
Discharge Plan Disposition Patient Disposition: HOME Condition: Good Discharge Details Reason For Visit: colon scope Attending Provider: Uzma Johnson Primary Care Provider: Bernice Garcia Home Meds and New Rx's Prescriptions: Continued Shingrix Adjuvant Component-PF Suspension 0.5 ml IM ONCE Qty: 0.5 1RF Rx Instructions: as a single dose Eliquis 5 mg tablet 5 mg PO BID Qty: 60 11RF lisinopril 20 mg tablet 20 mg PO DAILY Qty: 90 3RF multivitamin Tablet 1 tab PO DAILY pantoprazole 40 mg tablet,delayed release (DR/EC) 40 mg PO DAILY Qty: 90 4RF metoprolol tartrate [Lopressor] 50 mg tablet 50 mg PO BID Qty: 180 4RF levothyroxine 25 mcg tablet 25 mcg PO DAILY Qty: 90 4RF hydrochlorothiazide 25 mg tablet 25 mg PO QAM Qty: 90 4RF lovastatin 20 mg tablet See Rx Instructions .ROUTE .COMPLEX Qty: 90 4RF Dose Instruction: TAKE ONE TABLET BY MOUTH EVERY DAY Rx Instructions: TAKE ONE TABLET BY MOUTH EVERY DAY Discontinued polyethylene glycol 3350 17 gram/dose powder 238 g PO ONCE Qty: 238 0RF Rx Instructions: take per colonoscopy instructions bisacodyl [Dulcolax (bisacodyl)] 5 mg tablet,delayed release (DR/EC) 5 mg PO ONCE Qty: 4 0RF Rx Instructions: take per colonoscopy instructions Discharge Instructions Additional Instructions: DSU Colonoscopy Post- Op Instructions Instructions for Everyone who is given Anesthesia: For your safety, please do the following for the next twenty-four (24) hours: *Do Not operate a motor vehicle (car, truck, motorcycle, etc.) *Do Not drink alcoholic beverages or use any recreational drugs for the first 24 hours or while taking pain medications. The medications in your body may have a reaction that can be dangerous. *Do Not make any important decisions or sign any important papers. Findings: Colon polyp x1 Follow up: My office will send a letter in 2 to 3 weeks time, detailing as to what type of polyp it is and when we want you to repeat the colonoscopy, probably 3 to 5 years. Provided you are still healthy enough for anesthesia. -Resume apixaban on morning. 1. No lifting over 20 pounds or strenuous activity for the first 24 hours after your procedure. After 24 hours there are no restrictions on your activity but you may feel fatigued for a few days. 2. After you arrive home you may have a light meal and return to your normal diet as you can tolerate it without feeling sick to your stomach. 3. You may have a bloated, gaseous feeling in your belly (abdomen) after a colonoscopy. Passing gas and belching will help. Walking or lying down on your left side with your knees flexed may relieve the discomfort. Call the office at [phone] (Office) or [phone] (Hospital) right away if you notice any of the following: a.Vomiting of blood or ?coffee ground stools?. b.Rectal bleeding 1Tbsp, blood clots or continuous bleeding. c.Severe belly (abdominal) pain. d.A hard distended belly (abdomen) and an inability to pass gas. 4. Please don?t expect to have a normal BM (bowel movement) for 2-3 days after your procedure. 5. If there are questions regarding the findings of your procedure, please contact your doctor 6. If you are unable to contact your doctor with a problem, contact the hospital at [phone]. 7. Continue all your regular medications unless directed otherwise. I understand the above instructions and have no questions. Signature of Patient or Adult Escort Name of Responsible Adult Escort Signature of Nurse Date/Time Activity:: see above Diet:: As Tolerated Discharge Orders Discharge Orders: Discharge Order (Routine); Ordered 03/10/22 Ordered By: Uzma Johnson DS: Diagnosis Discharge Diagnosis (1) Diverticula of colon: Status: Acute (2) Colon polyp: Status: Acute
[2022-03-11 11:37] VITALS: BP 138/95; PULSE 70; RESP 18; TEMP 36.9; O2SAT 98
[2022-03-11] MEDS: Lactated Ringers 1,000 ML 80 ML IV (11:49)
--- NOTE | 2022-03-11 11:50 | W.ANESPRE ---
General Info Date of Service Date Performed: 03/11/22 Height: 6 ft 1 in Weight: 96.3 kg Body Mass Index (BMI): 28.0 Surgical Procedure: Operation Date: 03/11/22 10:50 Proposed Procedure Side Surgeon dell Johnson, Meds Allergies and Home Medications Allergies Allergy/AdvReac Type Severity Reaction Status Date / Time oxycodone AdvReac Intermediate Dizziness/L Verified 03/11/22 11:33 ightheade Home Medication Medication Instructions Recorded pantoprazole 40 mg tablet,delayed 40 mg PO DAILY #90 tabs 01/28/21 release adjuvant AS01B (PF)vial 1 of 2 0.5 ml IM ONCE #0.5 mL 10/01/21 (Shingrix Adjuvant Component (PF) intramuscular suspension) apixaban 5 mg tablet (Eliquis) 5 mg PO BID #60 tabs 10/15/21 lisinopril 20 mg tablet 20 mg PO DAILY #90 tabs 11/05/21 bisacodyl 5 mg tablet,delayed 5 mg PO ONCE colonscopy bowel prep 11/18/21 release (Dulcolax (bisacodyl)) #4 tabs multivitamin 1 tab PO DAILY 11/18/21 polyethylene glycol 3350 17 238 g PO ONCE colonoscopy prep 11/18/21 gram/dose oral powder #238 grams metoprolol tartrate 50 mg tablet 50 mg PO BID #180 tab-caps 11/25/21 (Lopressor) levothyroxine 25 mcg tablet 25 mcg PO DAILY #90 tabs 12/17/21 hydrochlorothiazide 25 mg tablet 25 mg PO QAM #90 tabs 02/21/22 lovastatin 20 mg tablet See Rx Instructions .Route 02/21/22 .COMPLEX #90 tabs Current Visit Medications: Current Medications Generic Name Dose Route Start Last Admin Trade Name Freq PRN Reason Stop Dose Admin Hyoscyamine Sulfate 0.125 mg 03/10/22 22:25 Hyoscyamine 0.125 Mg Sl/Oral/Chew SL DIRECTED PRN Ringer's Solution 1,000 mls @ 80 mls/hr 03/11/22 06:00 03/11/22 11:49 IV 04/09/22 23:59 80 mls/hr INFUSION ELÍAS Administration IV Miscellaneous Supplies 1 each 03/11/22 06:00 Iv Access IV 04/09/22 23:59 DIRECTED ELÍAS Ondansetron HCl 4 mg 03/10/22 22:25 Ondansetron 4 Mg/2 Ml Vial IVP Q4H PRN PRN Nausea / Vomiting Sodium Chloride 0 ml 03/11/22 06:00 Normal Saline Flush 10 Ml Syr IV 04/09/22 23:59 PRN PRN Sodium Chloride 0 ml 03/11/22 06:00 Normal Saline 10 Ml Vial IJ 04/09/22 23:59 DIRECTED PRN Sterile Water 0 ml 03/11/22 06:00 Water,Injection,Sterile 10 Ml Vial IJ 04/09/22 23:59 DIRECTED PRN PFSH Active Problems Active Problems: Problem Status Onset Code Positive colorectal cancer screening using Cologuard test R19.5 A-fib I48.91 Prediabetes R73.03 Gastroesophageal reflux disease K21.9 Medical History Medical History Achalasia Elevated TSH Normal t4 Essential hypertension (07/02/13) Fatigue History of left heart catheterization because of esophageal spasm symptoms, normal Hyperlipidemia (01/03/13) Left hip pain Low back pain Muscle weakness (generalized) Tremor 09/2020- long standing, right hand and only at rest Surgical History Surgical History Colonoscopy - MAC (~2007) LEFT HEART CARDIAC CATH (~2004) Repair of inguinal hernia B/L 1998 RIGHT 2011 S/P cholecystectomy Tobacco Smoking/Tobacco Use Status: Never Passive smoking exposure: Yes Second hand exposure: Yes (His father smoked terribly and at age 65) Alcohol Alcohol Intake: former Substance Use Substance use: Never Substance use type: does not use Vital Signs and Lab Results Vital Signs Most Recent Vital Signs in EMR: Most Recent Vital Signs Temp Pulse Resp BP Pulse Ox 36.9 C 70 18 138/95 H 98 03/11/22 11:37 03/11/22 11:37 03/11/22 11:37 03/11/22 11:37 03/11/22 11:37 Lab Results Blood Type / Crossmatch: No Data to Display Complete Blood Count: No Data to Display Complete Metabolic Panel: No Data to Display Liver Function Panel: No Data to Display Coagulation Panel: No Data to Display Cardiac Panel: No Data to Display Arterial Blood Gas: No Data to Display Venous Blood Gas: No Data to Display Pancreas Panel: No Data to Display Thyroid Panel: Thyroid Stimulating Hormone (TSH) 2.33 uIU/mL (0.36-3.74) 03/09/22 08:24 Infectious Disease: No Data to Display Blood Cultures: No Data to Display Toxicology Panel: No Data to Display Imaging and Studies Imaging and Studies Study information below may be from another EMR and interpreted by another provider. Please see original notes in EMR for more complete details. EKG Summary: Conclusion Atrial fibrillation...V-rate 66- 94, irreg A-activity Ventricular premature complex...V complex w/ short R-R interval Left axis deviation...QRS axis (-30,-90) Borderline T abnormalities, diffuse leads...T flat/neg Echocardiogram Summary: Conclusion Normal left ventricular wall thickness and chamber size. Estimated ejection fraction is 55 to 60%. Diastolic septal flattening suggests right ventricular pressure and volume overload. There are no segmental wall motion abnormalities The right ventricle is moderately to severely dilated. Right ventricular systolic function appears grossly normal The left atrium is normal in size. The right atrium is severely dilated The aortic valve is trileaflet and mildly sclerotic with trace to mild regurgitation Normal mitral valve with mild regurgitation Normal tricuspid valve with moderate regurgitation. Estimated right ventricular systolic pressure is 38 mmHg Mildly dilated ascending aorta measuring 3.81 cm Anesthesia Assessment and Plan Anesthesia History Personal History: No History of Anesthesia Complications Family History: No Family History of Anesthesia Complications Exercise Tolerance Exercise Tolerance: Metabolic Equivalents>4 Pertinent Negatives Pertinent Negatives: No Symptoms of GERD, No Major Cardiovascular Symptoms or Complaints, No Major Pulmonary Symptoms or Complaints and No History of CVA/TIA Cardiac & Pulmonary Exam Cardiac Exam: Normal S1/S2 Heart Sounds Pulmonary Exam: Clear Bilateral Breath Sounds Implantable Cardiac Device Does patient have a Pacemaker or an ICD?: No Airway Exam Known Difficult Airway: No Mallampati Class: 3 Mouth Opening: Narrow (< 3cm) Thyromental Distance: Greater than 3 cm Neck Range of Motion: Full ROM Neck Circumference: Normal Teeth Condition: Normal Dentition ASA Classification ASA Score: ASA 2 Emergency Case?: No NPO Status NPO Status: NPO Clears >2 hours, Solids >8 hours Anesthesia Plan Resuscitation Status: Full Code Anesthesia Technique: General Anesthesia Airway Planned: Natural Airway Monitors Used: Standard Monitors
[2022-03-11 11:54] VITALS: BMI 28.0
--- NOTE | 2022-03-11 12:13 | BOWEL_PTH ---
PATIENT: Gus Valadez LOC: [facility] U#:[id number] AGE/SX: 76/M ROOM: RE03/11/[address]: Uzma Johnson : 1945 BED: DIS: 03/11/2022 SPEC #: [id number] RECD: 03/11/22 13:29 STATUS: KEREN REQ #: [id number] MACKENZIE: 03/11/22 12:[address]: Uzma Johnson DEPT: Surgical Specimen RECD BY: Thi Stinson ENTERED: 03/11/22 13:30 SP TYPE: Bowel OTHR DR: Bernice Garcia, PhD RECREATION TEACHER Tissues: 1 - BIOPSY BOWEL Procedures: GROSS AND MICRO LEVEL 4 Comments: [id number]
[2022-03-11 12:33] VITALS: BP 111/73; PULSE 64; RESP 16; TEMP 37; O2SAT 97
--- NOTE | 2022-03-11 12:33 | W.ANESPOSTOP ---
Postoperative Evaluation Date, Time and Location Date Performed: 03/11/22 Time Performed: 12:34 Patient Location: Day Surgery Unit Vital Signs Most Recent Imported Vital Signs: Most Recent Vital Signs Temp Pulse Resp BP Pulse Ox 36.9 C 70 18 138/95 H 98 03/11/22 11:37 03/11/22 11:37 03/11/22 11:37 03/11/22 11:37 03/11/22 11:37 Most Recent Manually Entered Vital Signs: Adult Blood Pressure: 111/73 Heart Rate: 74 Respirations: 14 Oxygen Saturation (%): 98 Temperature (C): 36.4 C Pain Score (0-10 Scale): 0 Pain Score Most Recent Pain Score: Most Recent Pain Score Pain Level 0 03/11/22 11:37 Assessment Mental Status: Awake (Alert & Oriented to Patient Baseline) Airway and Respiratory Function: Patent airway with normal (patient baseline) respiratory exam Cardiovascular Function: Hemodynamically Stable Hydration Status: Adequately Hydrated Nausea & Vomiting: No Nausea or Vomiting Pain: Pt. Denies Any Pain Peripheral Nerve Block: Patient did not receive a nerve block
[2022-03-11 12:35] VITALS: BP 111/73; PULSE 74; RESP 14; TEMPC 36.4; O2SAT 98
[2022-03-11 13:04] VITALS: BP 127/79; PULSE 60; RESP 18; TEMP 36.2; O2SAT 99
== END 2022-03-11 13:49 | disposition home or self-care (01) ==
PROVIDERS: PCP Nurse Practitioner; Visit Provider Surgery
PROC: 0DJD8ZZ Inspection of Lower Intestinal Tract, Via Natural or Artificial Opening Endoscopic (ICD-10-PCS; CPT 45378; principal; 2022-03-11 10:45)
DX: R19.5 Other fecal abnormalities (principal); K63.5 Polyp of colon; K57.30 Diverticulosis of large intestine without perforation or abscess without bleeding
CPT/HCPCS: 45380; 88305

== ENCOUNTER → 2022-06-06 12:50 | Outpatient (BNVA) | payer MEDICARE, SELFPAY | PROVIDERS: PCP Nurse Practitioner; Referring Provider Nurse Practitioner; Visit Provider Student in an Organized Health Care Education/Training Program | DX: M16.12 Unilateral primary osteoarthritis, left hip (principal) | CPT/HCPCS: 99214 ==

== ENCOUNTER → 2022-06-23 02:54 | Outpatient (CLI) | payer MEDICARE, SELFPAY ==
--- NOTE | 2022-06-23 08:00 | DI.RAD_ITS ---
Exam(s) RF JOINT INJECTION FLUORO GUID EXAM: RF JOINT INJECTION FLUORO GUID CLINICAL HISTORY: FLUORO GUIDED INJECTION, LT HIP PAIN, M25.552 TECHNIQUE: 2D and realtime digital imaging was performed. COMPARISON: No exams were available for comparison FINDINGS: C-arm fluoroscopy was utilized by Dr. Alfaro during left hip injection. Hard copy shows intra-dia cular injection of left hip. IMPRESSION: RADIATION DOSE DELIVERED: bridget Thompson=0.50 mGy Total DLP
[2022-06-23] MEDS: methylPREDNISolone ACETATE 80 MG/ML VIAL IM (14:16)
[2022-06-23] MEDS: Bupivacaine 0.5% Pres-Free 10 ML VIAL 5 ML IJ (14:16)
[2022-06-23] MEDS: Omnipaque 300 MG/ML 10 ML BTL IJ (14:17)
--- NOTE | 2022-06-23 14:39 | W.PROCNOTE ---
Date of service: 06/23/22 Time of Service: 14:30 Procedure Note Date of procedure: 06/23/22 Procedure: Left Hip Injection with Fluoroscopic Guidance Surgeon/Proceduralist/Physician: Prem Alfaro Procedure Diagnosis: Left Hip Osteoarthritis Procedure Indications: Gus has had persistent pain of the LEFT hip and groin. Noninvasive measures have been tried. To serve as both diagnostic and therapeutic, an injection under fluoroscopy was recommended. I had discussed the risks of the procedure and the patient elected to proceed. Procedure Description: Gus was greeted in the flouroscopy room. The correct side was identified and the consent was reviewed with the patient and signed. The patient was then placed in the supine position on the fluoroscopy table. The LEFT hip was then prepped with Chloraprep. The anterolateral injection starting point was identiifed by bony landmarks and fluoroscopy. The skin and soft tissue in the tract of the injection was anesthetized with 1% Lidocaine. A spinal needle was then inserted deep into the hip joint at the level of the lateral femoral neck under fluoroscopic guidance. A small amount of Omnipaque solution was injected to confirm intraarticular placement. Once confirmed, the hip was injected with 5cc of 0.5% Bupivicaine and 80mg of Depo-Medrol. A bandaid was placed on the injection site. The patient tolerated the procedure well and noted improvement in pre-injection pain.
== END ==
PROVIDERS: PCP Nurse Practitioner; Visit Provider Student in an Organized Health Care Education/Training Program
DX: M25.552 Pain in left hip (principal)
CPT/HCPCS: 20610; 77002; J1040

== ENCOUNTER → 2022-08-08 13:35 | Outpatient (BNVA) | payer MEDICARE, SELFPAY | PROVIDERS: PCP Nurse Practitioner Family; Visit Provider Internal Medicine Cardiovascular Disease | DX: I48.91 Unspecified atrial fibrillation (principal) | CPT/HCPCS: 99213 ==

== ENCOUNTER 2023-04-11 03:55 | Outpatient (CLI) | payer MEDICARE, SELFPAY ==
[2023-04-11 12:11] LABS: HCT 48.3 % (40.0-50.0); HGB 15.9 g/dL (13.5-17.5); MCH 30.7 pg (27.0-33.0); MCHC 32.9 % (32.0-36.0); MCV 93 fL (80-95); MPV 10.6 fL (8.0-11.0); Platelet Count 186 10^3/uL (130-400); RBC 5.18 10^6/uL (4.36-5.78); RDW 12.9 % (11.8-14.1); RDW-SD 44.1 fL; WBC 6.57 10^3/uL (4.4-10.8)
[2023-04-11 12:47] LABS: ALT 26 U/L (16-63); AST 28 U/L (15-37); Albumin 3.6 g/dL (3.4-5.0); Alkaline Phosphatase 59 U/L (46-116); BUN 22 mg/dL (7-18); Bilirubin, Total 1.1 mg/dL (0.2-1.0); CREATININE 1.2 mg/dL (0.70-1.30); Calculated LDL 79 mg/dL (<100); Chloride 105 mmol/L (98-107); Cholesterol 150 mg/dL (<200); Estimated GFR 63.07 (mL/min/1.73m2); Glucose 99 mg/dL (74-106); HDL Cholesterol 50 mg/dL (40-60); Potassium 3.6 mmol/L (3.5-5.1); Sodium 143 mmol/L (136-145); Total Protein 6.9 g/dL (6.4-8.2); Triglyceride 105 mg/dL (<150)
== END 2023-04-11 03:56 | disposition home or self-care (01) ==
LOC: LOS 03:55
PROVIDERS: PCP Nurse Practitioner Family; Visit Provider Nurse Practitioner Family
DX: E03.9 Hypothyroidism, unspecified (principal); I48.91 Unspecified atrial fibrillation; K21.9 Gastro-esophageal reflux disease without esophagitis; R73.03 Prediabetes
CPT/HCPCS: 36415; 80053; 80061; 85027; 84443

== ENCOUNTER → 2023-08-07 13:22 | Outpatient (BNVA) | payer MEDICARE, SELFPAY | PROVIDERS: PCP Nurse Practitioner Family; Visit Provider Internal Medicine Cardiovascular Disease | DX: I48.11 Longstanding persistent atrial fibrillation (principal); Z79.01 Long term (current) use of anticoagulants; I10 Essential (primary) hypertension; R53.83 Other fatigue | CPT/HCPCS: 99214 ==

== ENCOUNTER 2023-12-13 05:35 | Outpatient (CLI) | payer MEDICARE, SELFPAY ==
[2023-12-13 13:16] LABS: Hemoglobin A1C 5.9 % (<5.7)
[2023-12-13 13:33] LABS: TSH (W/Ref FT4) 2.67 uIU/mL (0.36-3.74)
== END 2023-12-13 05:36 | disposition home or self-care (01) ==
LOC: LOS 05:36
PROVIDERS: PCP Nurse Practitioner Family; Visit Provider Nurse Practitioner Family
DX: E03.9 Hypothyroidism, unspecified (principal); R73.03 Prediabetes
CPT/HCPCS: 36415; 83036; 84443

== ENCOUNTER → 2024-08-05 13:26 | Outpatient (BNVA) | payer MEDICARE, SELFPAY | PROVIDERS: PCP Nurse Practitioner Family; Referring Provider Nurse Practitioner Family; Visit Provider Registered Nurse | DX: I48.11 Longstanding persistent atrial fibrillation (principal) | CPT/HCPCS: 99214 ==

== ENCOUNTER 2024-10-22 04:35 | Outpatient (CLI) | payer MEDICARE, SELFPAY ==
[2024-10-22 12:39] LABS: HCT 49.5 % (40.0-50.0); HGB 16.6 g/dL (13.5-17.5); MCH 31.5 pg (27.0-33.0); MCHC 33.5 % (32.0-36.0); MCV 94 fL (80-95); MPV 11.4 fL (8.0-11.0); Platelet Count 168 10^3/uL (130-400); RBC 5.27 10^6/uL (4.36-5.78); RDW 12.8 % (11.8-14.1); RDW-SD 44.1 fL; WBC 6.28 10^3/uL (4.4-10.8)
[2024-10-22 13:07] LABS: Hemoglobin A1C 5.7 % (<5.7)
[2024-10-22 13:23] LABS: ALT 25 U/L (16-63); AST 29 U/L (15-37); Albumin 3.7 g/dL (3.4-5.0); Alkaline Phosphatase 64 U/L (46-116); Anion Gap 4.3 mmol/L (3-11); BUN 21 mg/dL (7-18); Bilirubin, Total 0.98 mg/dL (0.2-1.0); CO2 31.7 mmol/L (21.0-32.0); CREATININE 1.2 mg/dL (0.70-1.30); Calcium 9.3 mg/dL (8.5-10.1); Calculated LDL 61 mg/dL (<100); Chloride 108 mmol/L (98-107); Cholesterol 136 mg/dL (<200); Estimated GFR 62.29 (mL/min/1.73m2); Glucose 110 mg/dL (74-106); HDL Cholesterol 55 mg/dL (40-60); Potassium 4.6 mmol/L (3.5-5.1); Sodium 144 mmol/L (136-145); TSH (W/Ref FT4) 2.87 uIU/mL (0.36-3.74); Total Protein 7.2 g/dL (6.4-8.2); Triglyceride 102 mg/dL (<150)
== END 2024-10-22 04:36 | disposition home or self-care (01) ==
LOC: LOS 04:35
PROVIDERS: PCP Nurse Practitioner Family; Visit Provider Nurse Practitioner Family
DX: R73.03 Prediabetes (principal); Z00.00 Encounter for general adult medical examination without abnormal findings; E03.9 Hypothyroidism, unspecified; I48.11 Longstanding persistent atrial fibrillation; K21.9 Gastro-esophageal reflux disease without esophagitis; I10 Essential (primary) hypertension
CPT/HCPCS: 36415; 80053; 80061; 85027; 83036; 84443

== ENCOUNTER 2024-11-19 00:31 | Outpatient (CLI) | payer MEDICARE, SELFPAY ==
--- NOTE | 2024-11-19 06:45 | DI.RAD_ITS ---
Exam(s) XR FOOT LT COMPLETE EXAM: XR FOOT LT COMPLETE CLINICAL HISTORY: Left foot pain,m79.672. TECHNIQUE: 2D digital imaging was performed of the left foot. Three images were obtained. AP, obli que and lateral views were obtained. COMPARISON: No exams were available for comparison FINDINGS: BONES: No acute fracture is present. No bony destructive lesion is seen. There is a bipartite medial sesamoid at the head of the 1st metatarsal. There is a small enthesophyte at the posterior calcaneus . There is a small plantar calcaneal spur. JOINTS: No dislocation present. There is a hallux valgus deformity. The joint spaces are well mainta ined apart from mild narrowing of the 1st metatarsophalangeal joint. SOFT TISSUE: Normal. IMPRESSION: Hallux valgus deformity and calcaneal spurs. DATA REPOSITORY: RADIATION DOSE DELIVERED:
== END 2024-11-19 00:51 ==
LOC: DI 00:31
PROVIDERS: PCP Nurse Practitioner Family; Visit Provider Podiatrist
DX: M79.672 Pain in left foot (principal)
CPT/HCPCS: 73630

== ENCOUNTER → 2024-11-25 09:53 | Outpatient (BNVA) | payer MEDICARE, SELFPAY | PROVIDERS: PCP Nurse Practitioner Family; Referring Provider Nurse Practitioner Family; Visit Provider Podiatrist | DX: I73.9 Peripheral vascular disease, unspecified (principal) | CPT/HCPCS: 93922 ==

== ENCOUNTER 2024-11-26 11:08 | Outpatient (CLI) | payer MEDICARE, SELFPAY ==
--- NOTE | 2024-11-26 11:00 | RT.EKG_ITS ---
APPROVED REPORT Exam: Resting ECG Reason for Exam: pre op Patient Location: O HR:67 bpm ECG Measurements Heart Rate 67 [address] [place] [id number] P [id number] QRSd 100 QRS 83 QT 441 T 12 QTc 466 Conclusion Atrial fibrillation...V-rate 52- 87, irreg A-activity Possible inferior infarct, old...Q >35mS, II III aVF
== END 2024-11-26 11:09 | disposition home or self-care (01) ==
LOC: DI.CM 11:09
PROVIDERS: PCP Nurse Practitioner Family; Visit Provider Nurse Practitioner Family
DX: Z01.818 Encounter for other preprocedural examination (principal)
CPT/HCPCS: 93010

== ENCOUNTER 2025-06-21 11:39 | Emergency (ER) | payer MEDICARE, SELFPAY ==
[2025-06-21 11:46] VITALS: BP 160/101; PULSE 73; RESP 12; TEMP 36.7; O2SAT 98
--- NOTE | 2025-06-21 11:50 | W.ED.GENAD ---
Discharge Plan Disposition Patient Disposition: Home Condition: Good Discharge Details Clinical Impression: Back spasm Primary Care Provider: Michelle Espinoza ED Provider: Arpita Pelaez Home Meds and New Rx's Prescriptions: No Action multivitamin Tablet 1 tab PO DAILY pantoprazole 40 mg tablet,delayed release (DR/EC) 40 mg PO DAILY Qty: 90 3RF metoprolol tartrate [Lopressor] 50 mg tablet 50 mg PO BID Qty: 180 4RF lovastatin 20 mg tablet See Rx Instructions .ROUTE .COMPLEX Qty: 90 4RF Dose Instruction: TAKE ONE TABLET BY MOUTH EVERY DAY Rx Instructions: TAKE ONE TABLET BY MOUTH EVERY DAY lisinopril 20 mg tablet 20 mg PO DAILY Qty: 90 3RF hydrochlorothiazide 25 mg tablet 25 mg PO QAM Qty: 90 4RF Eliquis 5 mg tablet 5 mg PO BID Qty: 60 11RF Discharge Instructions Additional Instructions: Please call your primary care provider first thing Monday morning to schedule a follow-up appointment. Your workup today was reassuring.A referral to physical therapy may be helpful. You may use tylenol 650 mg every 8 hours as needed for pain control. Lidocaine patches, heat/ice (not to be used over lidocaine patches), and gentle massage/stretching may also be helpful. Blood work was all unremarkable. There were incidental findings noted on your scan, including COPD/emphysema changes, scarring in the right kidney, and diverticulosis. Return to emergency care if you develop fevers associated with back pain, numbness in your underwear area, change in bowel/bladder function (inability to empty bladder, loss of bladder/bowel control), leg weakness or numbness, or if you are very worried and need to be rechecked again immediately. Referrals: Michelle Espinoza NP [Primary Care Provider, Medicine] HPI General Date/Time Provider Initiated Documentation: 06/21/25 11:50. HPI Narrative: Aquilino is a 79-year-old male who presents to the emergency department today for evaluation of right-sided intermittent mid- back spasms. Spasms began 3 weeks ago, progressively worsening/increasing in intensity to right mid back, with significant increase in severity today. Sudden onset during simple activities, described as tasing sensation lasting seconds, occurring frequently today. Triggers include movement and twisting. Denies associated fever/chills, headache, dizziness, recent illness such as congestion/sore throat/cough, chest pain, shortness of breath, extremity weakness/numbness, change in bowel or bladder function. He does occasionally get thigh cramps, no other history of muscle spasms. No known history of trauma. PMH significant for: A-fib on anticoagulation, GERD, hypothyroidism, peripheral artery disease. He is anticoagulated with Eliquis Related Data Home Medications ?Medication ?Instructions ?Recorded ?Confirmed multivitamin 1 tab PO DAILY 11/18/21 06/21/25 apixaban 5 mg tablet (Eliquis) 5 mg PO BID #60 tabs 10/14/24 06/21/25 hydrochlorothiazide 25 mg tablet 25 mg PO QAM #90 tabs 10/14/24 06/21/25 lisinopril 20 mg tablet 20 mg PO DAILY #90 tabs 10/14/24 06/21/25 lovastatin 20 mg tablet See Rx Instructions .Route 10/14/24 06/21/25 .COMPLEX #90 tabs metoprolol tartrate 50 mg tablet 50 mg PO BID #180 tab-caps 10/14/24 06/21/25 (Lopressor) pantoprazole 40 mg tablet,delayed 40 mg PO DAILY #90 tabs 10/14/24 06/21/25 release Previous Rx's ?Medication ?Instructions ?Recorded apixaban 5 mg tablet (Eliquis) 5 mg PO BID #60 tabs 10/14/24 hydrochlorothiazide 25 mg tablet 25 mg PO QAM #90 tabs 10/14/24 lisinopril 20 mg tablet 20 mg PO DAILY #90 tabs 10/14/24 lovastatin 20 mg tablet See Rx Instructions .Route 10/14/24 .COMPLEX #90 tabs metoprolol tartrate 50 mg tablet 50 mg PO BID #180 tab-caps 10/14/24 (Lopressor) pantoprazole 40 mg tablet,delayed 40 mg PO DAILY #90 tabs 10/14/24 release Allergies Allergy/AdvReac Type Severity Reaction Status Date / Time oxycodone AdvReac Intermediate Dizziness/L Verified 06/21/25 11:48 ightheade General Stated Complaint: Nk/Back Pain TORIE: 4 Exam Narrative Exam Narrative: General Appearance: Normal. Patient alert and oriented, no acute distress Vital signs: Within normal limits, hypertension noted Respiratory: Easy work of breathing, lungs clear bilaterally. No pain with palpation of chest wall Cardiovascular: Irregular heart rate, normal heart sounds. No pedal edema or obvious JVD. GI: Abdomen soft, nondistended, nontender to palpation, no pulsatile masses. Back/musculoskeletal: No tenderness with palpation or step-off/deformity/point tenderness with palpation along C-spine/T-spine/L-spine Neurological: 5/5 muscle strength upper and lower extremities, sensation grossly intact Skin: No rashes or lesions, abrasions, or ecchymosis noted to back Psychiatric: Normal. Course Vital Signs Vital signs: Vital Signs Temperature 36.7 C 06/21/25 11:46 Pulse 73 06/21/25 11:46 Respiratory Rate 12 06/21/25 11:46 Blood Pressure 160/101 H 06/21/25 11:46 Pulse Oximetry 98 06/21/25 11:46 Temperature 36.7 C 06/21/25 11:46 Temperature Source Oral 06/21/25 11:46 Pulse 73 06/21/25 11:46 Respiratory Rate 12 06/21/25 11:46 Blood Pressure 160/101 H 06/21/25 11:46 Blood Pressure Position Sitting 06/21/25 11:46 Pulse Oximetry 98 06/21/25 11:46 Oxygen Delivery Method Room Air 06/21/25 11:46 Oxygen Flow Rate 0 06/21/25 11:46 Medical Decision Making Initial Assessment: 79-year-old male with worsening right mid-back spasms for 3 weeks, triggered by movements, lasting seconds. No history of similar spasms or systemic symptoms. Physical exam: no rashes, pain upon palpation, or ankle swelling. Differential Diagnosis: Electrolyte imbalance, renal dysfunction, pneumonia, aortic dissection, neoplasm/bony abnormality, nerve impingement I independently interpreted the following tests: EKG shows A-fib, no changes consistent with acute ischemia, normal QTc. CBC, CMP, magnesium, and urine all unremarkable. Trace blood noted in urine, however this was in a previous samples as well. CTA chest/abdomen/pelvis performed, no acute abnormalities noted. Incidental findings of COPD/emphysematous changes, cortical scarring of the right kidney, and diverticulosis noted. I did inform patient and his of incidental findings. Workup today reassuring, unclear etiology of back spasms, possibly related to nerve impingement/herniated disc. Recommend further follow-up by PCP. Discharge instruction with patient, including symptomatic management/lidocaine patches, importance of follow-up with PCP, and incidental findings. Reviewed red flags indicate need for return to emergency care. He and his voiced agreement plan of care. Patient consented to the use of [facility] Imaging Data Radiologic Study: Radiologist's impression: PROCEDURE INFORMATION: Exam: CTA Chest With Contrast CTA Abdomen and Pelvis With Contrast Exam date and time: 06/21/2025 1:30 PM Age: 79 years old Clinical indication: Other: Right sided pain; Abdominal pain TECHNIQUE: Imaging protocol: Computed tomographic angiography of the chest with contrast. Exam focused on the arteries. Computed tomographic angiography of the abdomen and pelvis with contrast. Exam focused on the arteries. 3D rendering (Not supervised by radiologist): MIP and/or 3D reconstructed images were created by the technologist. Contrast material: OMNI 350; Contrast volume: 100 ml; Contrast route: INTRAVENOUS (IV); COMPARISON: CR XR CHEST 2V PA LATERAL 09/11/2019 8:54 AM FINDINGS: VASCULATURE: Pulmonary arteries: The exam was not specifically tailored to evaluate the pulmonary arteries. No large or central pulmonary embolus is identified. Aorta: The aorta is mildly ectatic and tortuous. There is no acute aortic abnormality. There is no evidence of acute dissection. Celiac and mesenteric arteries: The celiac, SMA origins are patent. Inferior mesenteric artery origin is visualized. Renal arteries: There is plaque involving the renal artery origins bilaterally greater on the left than the right but the renal arteries are patent bilaterally. There are solitary renal arteries. Right iliac arteries: There is plaque but no significant stenosis of the right common, internal or external iliac artery. Left iliac arteries: There is mild plaque but no significant stenosis of the left common internal or external iliac artery. CHEST: Lungs: Emphysematous changes are seen in the lungs. There are small paraseptal bullae. There is a small subpleural calcified granuloma noted in the left upper lobe best seen on series 17, image 115. There is a small 5 mm hazy ground-glass opacity in the middle lobe at the lung base. There are minimal subpleural linear opacities at the lung bases likely related to atelectasis or scarring. Pleural spaces: There is no large pleural effusion or pneumothorax Heart: The heart is enlarged. There is no significant pericardial effusion. ABDOMEN AND PELVIS: Liver: No focal intrahepatic abnormality is identified Gallbladder and biliary ducts: Patient has had prior cholecystectomy. There is no significant biliary ductal dilatation Pancreas: The pancreas is unremarkable Spleen: The spleen is unremarkable Adrenal glands: The adrenals are unremarkable Kidneys and ureters: There is scarring, cortical thinning particularly noted posteriorly in the right kidney. No radiopaque calculi are identified. There is no hydronephrosis. There is no evidence of a discrete renal cortical mass Stomach and bowel: There is diverticulosis particularly involving the sigmoid colon but no evidence of acute diverticulitis. There is no evidence of bowel obstruction. There is no discrete mass or pneumatosis. Appendix: There is no evidence of acute appendicitis Intraperitoneal space: No free fluid focal collections or free intraperitoneal air is identified Urinary bladder: Bladder is unremarkable Reproductive: Prostate gland, seminal vesicles are unremarkable Lymph nodes: There is no significant adenopathy Bones/joints: Degenerative changes are seen in the thoracic and in the lumbar spine. There is no acute bony abnormality identified. Soft tissues: There is no significant subcutaneous abnormality IMPRESSION: 1. No acute aortic abnormality. Aorta is nonaneurysmal. No acute dissection 2. COPD/emphysema. Mild basilar atelectasis or scarring. Subtle 5 mm ground-glass nodule right middle lobe.No routine follow-up is indicated. (Reference: Gilberto) 3. Cortical scarring posteriorly in the right kidney. 4. Diverticulosis without evidence of acute diverticulitis. PFSH All Active Problems (Updated 06/21/25 @ 15:44 by Arpita Wilde) Back spasm (Acute) PAD (peripheral artery disease) (Acute) Pain in left foot (Acute) Ulcer of left foot, limited to breakdown of skin (Acute) Bunion, right foot (Acute) Bunion, left foot (Acute) Sensorineural hearing loss (SNHL) of both ears (Acute) Osteoarthritis of left hip (Acute) Tubular adenoma of colon (Acute) Hypothyroid (Chronic) Colon polyp (Acute) Diverticula of colon (Acute) Positive colorectal cancer screening using Cologuard test (Acute) A-fib (Chronic) Prediabetes (Acute) Gastroesophageal reflux disease (Acute) dysmotility Medical History Left hip pain Elevated TSH Normal t4 Muscle weakness (generalized) Fatigue Tremor 09/2020- long standing, right hand and only at rest Low back pain Achalasia History of left heart catheterization because of esophageal spasm symptoms, normal Essential hypertension (07/02/13) Hyperlipidemia (01/03/13) Surgical History S/P cholecystectomy LEFT HEART CARDIAC CATH (~2004) Repair of inguinal hernia B/L 1998 RIGHT 2011 Colonoscopy - MAC (~2007) 03/2022 Family History Father , 63 Heart disease Stroke Alcohol abuse Maternal Grandfather Heart disease Mother , 98 No problems noted. Paternal Grandfather , 75 No problems noted. Maternal Grandmother No problems noted. Paternal Grandmother , 87 No problems noted. Daughter No problems noted. Social History Smoking/Tobacco Use Status: Never Second Hand Exposure: Yes (His father smoked terribly and at age 63) Smoking risk assessment performed?: Yes Alcohol Intake: former Drug use: Current Sobriety Substance use type: former substance user and marijuana Caregiver/Support person: No Household members: spouse Housing: house Communication Needs: None Pets and animals: Yes Pets and animals: cat(s) Sexually active: Yes Do you think of yourself as: straight/heterosexual Current gender identity: male What is your relationship status?: How often do you talk on the phone with friends or family?: once per week How often do you get together with friends or relatives?: once per week How often do you attend hinduism or nondenominational services?: decline to answer Do you belong to any clubs or organized social groups?: no Panel score (0-1 are the most socially isolated patients): 1 What type of physical activity do you participate in: none Mary Lou/Sabianism: No preference Seatbelt use: always Helmet use: No Drive intox or ride w/intox construction driver: No Do you feel safe at home: Yes Do you feel safe in your relationship?: Yes
--- NOTE | 2025-06-21 12:00 | DI.CT_ITS ---
Exam(s) CT THORACIC LUMBAR SPINE REC EXAM: CT THORACIC LUMBAR SPINE REC CLINICAL HISTORY: R sided midback spasms. TECHNIQUE: Imaging Protocol: Axial, coronal and sagittal images were reconstructed from the chest abdomen and pelvic CT utilizing bone algorithm. COMPARISON: CR XR CHEST 2V PA LATERAL from 09/11/2019 FINDINGS: Thoracic spine: Bones: No acute fractures are seen. The alignment of the spine is normal including the cervicothoracic junction. There are endplate osteophytes projecting anteriorly. There is no significant central canal stenosis. No lytic or blastic lesions. No gross evidence of disc herniation. Soft tissues: The soft tissues of the chest are unremarkable. Lumbar spine: Bones: No acute fracture is identified. Degenerative disc changes and facet degenerative changes are present, greatest at L5-S1. There are endplate osteophytes which project mainly anteriorly. Mild disc bulging. Neural foraminal narrowing from L3-4 through L5-S1.. Alignment: Mild levoscoliosis. Soft tissues: There is no large disc herniation. No paraspinal hematoma. IMPRESSION: No acute abnormality of the thoracic or lumbar spine. Degenerative changes. The preliminary [facility] report was reviewed. RADIATION DOSE DELIVERED: Total DLP DATA REPOSITORY: All CT scans at this facility are submitted to the National Radiology Data Registry (NRDR) Dose Index Registry (DIR) with the [employer] (ACR). RADIATION OPTIMIZATION: All CT scans at this facility use at least one of these dose optimization techniques: automated exposure control; mA and/or kV adjustment per patient size (includes targeted exams where dose is matched to clinical indication); or iterative reconstruction.
--- NOTE | 2025-06-21 12:00 | RT.EKG_ITS ---
APPROVED REPORT Exam: Resting ECG Reason for Exam: R sided back pain Patient Location: E HR:65 bpm ECG Measurements Heart Rate 65 AXIS MO [id number] P [id number] QRSd 102 QRS 160 QT 443 T -3 QTc 463 Conclusion Atrial fibrillation...V-rate 49- 90, irreg A-activity Inferior infarct, old...Q >35mS, II III aVF Anteroseptal infarct, age indeterminate...Q >35mS, T neg, V1-V2 No STEMI
--- NOTE | 2025-06-21 12:00 | DI.CT_ITS ---
Exam(s) CT THORAX ABD/PEL CTA EXAM: CT THORAX ABD/PEL CTA CLINICAL HISTORY: muscle spams, r/o aortic pathology. TECHNIQUE: Imaging Protocol: Axial CT angiography was performed with multi- slice acquisition and multi-planar and/or 3D reconstructions. CONTRAST MATERIAL: Intravenous: Omnipaque 350 Contrast volume:structured data in ml Oral: no COMPARISON: CR XR CHEST 2V PA LATERAL from 09/11/[address] THORACIC LUMBAR SPINE REC from 06/21/2025 FINDINGS: CHEST: Pulmonary Arteries: No evidence of filling defect to suggest pulmonary emboli. The pulmonary arteries appear dilated which could indicate pulmonary hypertension. Tracheobronchial tree: Patent where visualized. Mediastinum and Ashley: No dominant adenopathy or fluid collection. Pulmonary parenchyma: No consolidation or dominant measurable mass. Mild emphysematous changes. Basilar atelectasis. Pleura: No effusion or pneumothorax. Heart: The heart is dilated. No pericardial effusion. No coronary artery calcifications are seen. Aorta: Mildly ectatic. No dissection. Minimal atherosclerotic calcification. Bones: Degenerative changes. Tubes, Catheters, and Lines: ABDOMEN AND PELVIS: Abdomen: Celiac axis/mesenteric arteries: No evidence of occlusion or significant stenosis. Renal Arteries: Calcification at the origins but no evidence of occlusion or significant stenosis. There is a single renal artery perfusing each kidney. Aorta: No evidence of occlusion or significant stenosis. No aneurysm or dissection. Pelvis: Iliac Arteries: Calcification of the iliac arteries with no evidence of occlusion or significant stenosis. Common Femoral Arteries: No evidence of occlusion or significant stenosis. ABDOMEN: Liver: Normal density. No measurable mass. Portal, Superior Mesenteric, and Splenic Veins: Unremarkable. Gallbladder and Biliary Tract: Cholecystectomy. No biliary dilation. Pancreas: Normal density, no abnormal calcifications or inflammatory process. Spleen: Normal. Adrenals: No masses seen. Kidneys: Normal size and axis. Cortical thinning at the posterior right kidney. No radiodense stones or obstructive uropathy. No masses seen. Bowel: No obstruction or bowel wall thickening. Appendix is unremarkable. Diverticulosis. Peritoneal Cavity: No ascites, collection or mesenteric inflammatory response. Lymph Nodes: Within normal limits. Bones: Degenerative changes. Soft Tissues: Unremarkable. PELVIS: Bladder: Symmetric distention, no gross wall thickening. Reproductive Organs: Unremarkable as visualized. Lymph Nodes: Within normal limits. Bones: Unremarkable for age. IMPRESSION: Mild aortic atherosclerotic changes. No evidence of aneurysm, dissection or significant stenosis of the aorta or branch vessels. No acute abnormality in the chest abdomen or pelvis. The preliminary [facility] report was reviewed. RADIATION DOSE DELIVERED: Total DLP DATA REPOSITORY: All CT scans at this facility are submitted to the National Radiology Data Registry (NRDR) Dose Index Registry (DIR) with the [employer] (ACR). RADIATION OPTIMIZATION: All CT scans at this facility use at least one of these dose optimization techniques: automated exposure control; mA and/or kV adjustment per patient size (includes targeted exams where dose is matched to clinical indication); or iterative reconstruction.
[2025-06-21 12:35] LABS: HCT 47.3 % (40.0-50.0); HGB 15.7 g/dL (13.5-17.5); MCH 30.5 pg (27.0-33.0); MCHC 33.2 % (32.0-36.0); MCV 92 fL (80-95); MPV 9.9 fL (8.0-11.0); Platelet Count 198 10^3/uL (130-400); RBC 5.15 10^6/uL (4.36-5.78); RDW 12.5 % (11.8-14.1); RDW-SD 42.6 fL; WBC 6.21 10^3/uL (4.4-10.8)
[2025-06-21 12:46] LABS: Anion Gap 7.0 mmol/L (3-11); BUN 21 mg/dL (7-18); CO2 31.0 mmol/L (21.0-32.0); Calcium 9.4 mg/dL (8.5-10.1); Chloride 103 mmol/L (98-107); Estimated GFR 77.52 (mL/min/1.73m2); Glucose 97 mg/dL (74-106); Magnesium 1.8 mg/dL (1.8-2.4); Potassium 4.3 mmol/L (3.5-5.1); Sodium 141 mmol/L (136-145)
[2025-06-21] MEDS: Omnipaque 350 MG/ML 100 ML BTL IJ (13:51)
[2025-06-21 13:52] VITALS: BP 155/82; PULSE 75
[2025-06-21 13:57] LABS: Glucose Negative (Negative)
[2025-06-21 14:07] LABS: C & S Indicated? No; WBC Negative HPF (0-5)
--- NOTE | 2025-06-21 15:25 | DI.[facility]_ITS ---
PROCEDURE INFORMATION: Exam: CTA Chest With Contrast CTA Abdomen and Pelvis With Contrast Exam date and time: 06/21/2025 1:30 PM Age: 79 years old Clinical indication: Other: Right sided pain; Abdominal pain TECHNIQUE: Imaging protocol: Computed tomographic angiography of the chest with contrast. Exam focused on the arteries. Computed tomographic angiography of the abdomen and pelvis with contrast. Exam focused on the arteries. 3D rendering (Not supervised by radiologist): MIP and/or 3D reconstructed images were created by the technologist. Contrast material: OMNI 350; Contrast volume: 100 ml; Contrast route: INTRAVENOUS (IV); COMPARISON: CR XR CHEST 2V PA LATERAL 09/11/2019 8:54 AM FINDINGS: VASCULATURE: Pulmonary arteries: The exam was not specifically tailored to evaluate the pulmonary arteries. No large or central pulmonary embolus is identified. Aorta: The aorta is mildly ectatic and tortuous. There is no acute aortic abnormality. There is no evidence of acute dissection. Celiac and mesenteric arteries: The celiac, SMA origins are patent. Inferior mesenteric artery origin is visualized. Renal arteries: There is plaque involving the renal artery origins bilaterally greater on the left than the right but the renal arteries are patent bilaterally. There are solitary renal arteries. Right iliac arteries: There is plaque but no significant stenosis of the right common, internal or external iliac artery. Left iliac arteries: There is mild plaque but no significant stenosis of the left common internal or external iliac artery. CHEST: Lungs: Emphysematous changes are seen in the lungs. There are small paraseptal bullae. There is a small subpleural calcified granuloma noted in the left upper lobe best seen on series 17, image 115. There is a small 5 mm hazy ground-glass opacity in the middle lobe at the lung base. There are minimal subpleural linear opacities at the lung bases likely related to atelectasis or scarring. Pleural spaces: There is no large pleural effusion or pneumothorax Heart: The heart is enlarged. There is no significant pericardial effusion. ABDOMEN AND PELVIS: Liver: No focal intrahepatic abnormality is identified Gallbladder and biliary ducts: Patient has had prior cholecystectomy. There is no significant biliary ductal dilatation Pancreas: The pancreas is unremarkable Spleen: The spleen is unremarkable Adrenal glands: The adrenals are unremarkable Kidneys and ureters: There is scarring, cortical thinning particularly noted posteriorly in the right kidney. No radiopaque calculi are identified. There is no hydronephrosis. There is no evidence of a discrete renal cortical mass Stomach and bowel: There is diverticulosis particularly involving the sigmoid colon but no evidence of acute diverticulitis. There is no evidence of bowel obstruction. There is no discrete mass or pneumatosis. Appendix: There is no evidence of acute appendicitis Intraperitoneal space: No free fluid focal collections or free intraperitoneal air is identified Urinary bladder: Bladder is unremarkable Reproductive: Prostate gland, seminal vesicles are unremarkable Lymph nodes: There is no significant adenopathy Bones/joints: Degenerative changes are seen in the thoracic and in the lumbar spine. There is no acute bony abnormality identified. Soft tissues: There is no significant subcutaneous abnormality IMPRESSION: 1. No acute aortic abnormality. Aorta is nonaneurysmal. No acute dissection 2. COPD/emphysema. Mild basilar atelectasis or scarring. Subtle 5 mm ground-glass nodule right middle lobe.No routine follow-up is indicated. (Reference: Gilberto) 3. Cortical scarring posteriorly in the right kidney. 4. Diverticulosis without evidence of acute diverticulitis. REFERENCES: Geovannyhoconnor H, et al. Guidelines for Management of Incidental Pulmonary Nodules Detected on CT Images: From the Fleischner Society 2017. Radiology. 2017;284(1):228-243. Dictated and Authenticated by: Gena Fox MD. Orderin Bonilla Palm MD
[2025-06-21 15:56] VITALS: BP 121/90; PULSE 74; RESP 18; O2SAT 94
--- NOTE | 2025-06-22 01:57 | DI.VRAD_ITS ---
PROCEDURE INFORMATION: Exam: CT Thoracic Spine Without Contrast Exam date and time: 06/21/2025 1:30 PM Age: 79 years old Clinical indication: Pain; Other: R sided midback spasms TECHNIQUE: Imaging protocol: Computed tomography of the thoracic spine without contrast. COMPARISON: CT THORAX ABD/PEL CTA 06/21/2025 1:30 PM FINDINGS: Bones/joints: Osteopenia. Moderate thoracic spondylosis with prominent anterior and lateral marginal spurring at multiple midthoracic levels. No fracture or traumatic malalignment. No canal stenosis. No significant foraminal stenosis. Moderate disc osteoarthritic changes C5-C6 and C6-C7 with bilateral uncovertebral spurring producing severe left foraminal stenosis C5-C6 and moderate bilateral foraminal stenosis C6-C7. Soft tissues: Unremarkable. Heart: Mild cardiomegaly. Kidneys and ureters: Chronic right renal cortical scarring noted. IMPRESSION: 1. No acute findings in the thoracic spine. 2. Osteopenia and moderate thoracic spondylosis. 3. Lower cervical osteoarthritic changes with bilateral foraminal stenoses detailed above. 4. Mild cardiomegaly. PROCEDURE INFORMATION: Exam: CT Lumbar Spine Without Contrast Exam date and time: 06/21/2025 1:30 PM Age: 79 years old Clinical indication: Pain; Other: R sided midback spasms TECHNIQUE: Imaging protocol: Computed tomography of the lumbar spine without contrast. COMPARISON: CT THORAX ABD/PEL CTA 06/21/2025 1:30 PM FINDINGS: Bones/joints: Osteopenia. No fracture or traumatic malalignment. Slight leftward convexity lumbar scoliotic curvature. Moderate disc osteoarthritic changes L5-S1 and to a lesser degree L4-L5 and L3-L4. No canal stenosis. There is left foraminal stenosis which is moderate-severe L5-S1, moderate L4-L5, and mild L3-L4. There is right foraminal stenosis which is mild at L5-S1 and L4-L5, and mild-moderate at L3-L4. Bilateral SI joint osteoarthritic spurring. Kidneys and ureters: Chronic appearing right posterior renal cortical atrophy. Vasculature: Mild-moderate calcific atherosclerosis. Soft tissues: Mild dependent midline subcutaneous edema in the lumbar region. IMPRESSION: 1. No acute findings. 2. Osteoarthritic changes with bilateral foraminal stenoses detailed above. 3. Chronic right posterior renal cortical atrophy/scarring. Dictated and Authenticated by: Mitchell Rudolph MD. Orderin Bonilla Palm MD
== END 2025-06-21 15:57 | disposition home or self-care (01) ==
PROVIDERS: Emergency Provider Nurse Practitioner Family; PCP Nurse Practitioner Family
DX: M62.830 Muscle spasm of back (principal)
CPT/HCPCS: 99285; 99283; 36415; 71275; 80048; 85027; 93005; 74174; 81003; 81015; 83735; 93010; J3490

== ENCOUNTER → 2025-08-11 10:51 | Outpatient (BNVA) | payer MEDICARE, SELFPAY | PROVIDERS: PCP Nurse Practitioner Family; Visit Provider Registered Nurse | DX: I48.11 Longstanding persistent atrial fibrillation (principal); Z79.01 Long term (current) use of anticoagulants | CPT/HCPCS: 99214 ==